=== PATIENT | female | born 1935 | race Caucasian/White ===

== ENCOUNTER 2017-06-04 08:29 | Inpatient (IN) ==
[2017-06-04] MEDS ORDERED: Ondansetron 4 MG/2 ML VIAL IVP ONE (08:54)
--- NOTE | 2017-06-04 08:56 | Emergency Department Note ---
Disposition Clinical Impression: Acute electrocardiogram changes, Ascites, Cirrhosis Abdominal pain Qualifiers: Abdominal location: periumbilical Qualified Code(s): R10.33 - Periumbilical pain Disposition: Still a Patient Referrals: Ace Dalton DO [Primary Care Provider] - Abdominal Pain HPI - General Chief Complaint: ED Abdominal Pain Stated Complaint: "my hernia hurts" Time Seen by Provider: 06/04/17 08:48 Source: patient, family Mode of arrival: private vehicle Limitations: no limitations Nursing Notes Reviewed: Yes Vital Signs Reviewed: Yes - History of Present Illness Pt Subjective Complaint: abdominal pain Onset (ago): week(s) Consistency: constant, Worsening Location: periumbilical Pain Severity: moderate Pain Scale: 8 Quality: sharp Radiation: other (mid abdomen) Improves with: nothing Worsens with: movement ("bending over to put on compression stockings") Context: history of similar episodes (recently diagnosed with a ventral hernia. Has appt to see Dr. Perez in June) Associated symptoms: Reports: nausea, diarrhea, anorexia. Denies: vomiting, fever, chills, constipation, dysuria, hematemesis, hematochezia, melena, hematuria, syncope, other Treatments prior to arrival: none - Related Data Home Medications Medication Instructions Recorded Confirmed ARIPiprazole [Abilify] 5 mg PO HS 10/21/15 04/29/17 Albuterol Sulfate [Albuterol 1 puff IH Q4HR 10/21/15 04/29/17 Inhaler] Atenolol 50 mg PO DAILY 10/21/15 04/29/17 Ferrous Sulfate [Iron] 325 mg PO TID 10/21/15 04/29/17 Fluticasone Propionate [Flovent 110 mcg IH BID 10/21/15 04/29/17 Hfa] Furosemide [Lasix] 40 mg PO BID 10/21/15 04/29/17 Levothyroxine [Synthroid] 125 mcg PO QAM 10/21/15 04/29/17 Loratadine [Claritin] 10 mg PO HS 10/21/15 04/29/17 Montelukast Sodium [Singulair] 5 mg PO HS 10/21/15 04/29/17 Simvastatin [Zocor] 20 mg PO QPM 10/21/15 04/29/17 Potassium Chloride [K-Tab ER] 10 meq PO DAILY 12/06/15 04/29/17 traZODone [TraZODone] 50 mg PO HS 12/06/15 04/29/17 Budesonide/Formoterol 160/4.5 1 puff IH BIDR 01/13/17 04/29/17 [Symbicort 160/4.5] Escitalopram [Lexapro] 20 mg PO DAILY 01/13/17 04/29/17 Oxygen 1 each NS CONT 01/13/17 04/29/17 Warfarin [Coumadin] 6.5 mg PO DAILY 01/13/17 04/29/17 Cholecalciferol (D-3) [Vitamin D] 1,000 unit PO DAILY 04/29/17 04/29/17 Previous Rx's Medication Instructions Recorded Aspirin 81 mg PO DAILY #90 tab.chew 10/23/15 Allergies Allergy/AdvReac Type Severity Reaction Status Date / Time morphine Allergy Anaphylaxis Verified 04/29/17 14:08 ranolazine [From Ranexa] Allergy Diarrhea Verified 04/29/17 14:08 etomidate [From Amidate] AdvReac Anaphylaxis Verified 04/29/17 14:08 iodine AdvReac Rash Verified 04/29/17 14:08 povidone-iodine AdvReac Rash Verified 04/29/17 14:08 [From Betadine] soap [From Betadine] AdvReac Rash Verified 04/29/17 14:08 All systems ED: reviewed and negative except as stated. Review of Systems: As Per HPI Constitutional: Denies: fever, chills, weakness Cardiovascular: Reports: dyspnea on exertion ("Chronic"), edema (worse today b/ c has not been able to put stockings on). Denies: chest pain, palpitations, orthopnea, syncope Respiratory: Denies: cough, dyspnea, wheezes, hemoptysis, stridor, sputum production Gastrointestinal: Reports: as per HPI, abdominal pain, nausea, diarrhea. Denies : vomiting, constipation, hematemesis, melena, hematochezia Genitourinary: Reports: frequency. Denies: urgency, dysuria, hematuria Musculoskeletal: Denies: back pain, neck pain, joint swelling, arthralgia Integumentary: Denies: rash Neurological: Denies: headache, weakness, numbness, paresthesias, confusion, vertigo Endocrine: Denies: fatigue Hematological/Lymphatic: Reports: easy bleeding (on Coumadin), easy bruising Abdominal Pain PMH - Past Medical History Medical history: Reports: arthritis, asthma, atrial fibrillation, CHF, COPD, coronary artery disease, GERD, hyperlipidemia, hypertension, thyroid disease Female Surgical History: Reports: cholecystectomy, hysterectomy, Tonsillectomy Psychiatric history: Reports: anxiety, depression - Social History Smoking status: Former smoker Alcohol use: Reports: none Drug use: Reports: none Physical Exam - General Limitations: no limitations General appearance: alert, in no apparent distress - Head Head exam: atraumatic, normocephalic, normal inspection - Eye Eye exam: Present: normal appearance, PERRL. Absent: scleral icterus, conjunctival injection, periorbital swelling - ENT ENT exam: mucous membranes dry - Neck Neck exam: Present: normal inspection, full ROM, trachea midline. Absent: tenderness, meningismus, lymphadenopathy - Chest Chest inspection: Present: normal inspection - Respiratory Respiratory exam: Absent: respiratory distress, wheezes, stridor, accessory muscle use, prolonged expiratory phase - Expanded Respiratory Exam Location: rales: Left, Right, Lower - Cardiovascular Cardiovascular exam: Present: regular rate, irregular rhythm, systolic murmur - Abdominal Exam Abdominal exam: Present: soft, tenderness, diminished bowel sounds. Absent: distention, guarding, rebound, rigidity, mass, pulsatile mass - Extremities Exam Extremities exam: Present: full ROM, normal capillary refill, pedal edema ( bilateral 1+; feet to knees). Absent: tenderness, joint swelling, calf tenderness - Neurological Exam Neurological exam: Present: alert, oriented X3, CN II-XII intact - Psychiatric Psychiatric exam: Present: normal affect, normal mood - Skin Skin exam: Present: warm, dry, intact, normal color Course Course Narrative: Patient presents from home for evaluation of abdominal pain. She points to the periumbilical area as the site of pain. It does not radiate. She states that she was recently diagnosed with a ventral hernia and has an appointment to see a surgeon in June. She was told to go to the ER if her pain increased, or if she experienced nausea/vomiting/diarrhea. She has had increased pain, nausea , and feels that the hernia is getting bigger. She denies chest pain, changes in breathing or worsening dyspnea on exertion. She does have a history of CHF and peripheral edema. She notes that her legs are more swollen than usual because she was unable to put on her compression stockings yesterday. This was because she has significant pain when she tries to bend over. Labs and antiemetics have been ordered. Patient declines pain medication at this time. Her EKG shows atrial fibrillation. She has new T-wave inversions compared to previous EKG from 2015. This was reviewed and discussed with the attending, Dr. Bright. CT of the abdomen and pelvis with contrast was ordered. Patient has a history of iodine allergy. CT recommends premedication protocol. This was ordered. I discussed this plan with the attending, however, the patient had already been given the medications. She has had no adverse reactions to the Benadryl or steroids. She was able to tolerate the contrast. Results of the CT are pending. Patient's BNP is elevated, slightly above her usual value. It is in the 700s. Chest x-ray was added. Results are pending. Case has been discussed with Dr. Bright, ER attending. He has had [id number] time with the patient and will be taking over care of her at this time. - Reevaluation(s) Reevaluation #1: Pain and nausea are better. Patient allergic to Iodine. CT ismael's pre- medication protocol. Time: 09:56 - Consultations Consultation #1: Dr. Malloy paged per recommendation of Dr. Bright. Case discussed with Dr. Malloy. She states that she will be happy to see the patient and to let the patient know that the hernia will not be able to be repaired until the ascites is controlled. Patient updated. Dr. Bright updated. Vital Signs Temperature 97.6 F 06/04/17 08:32 Pulse Rate 79 06/04/17 08:32 Respiratory Rate 18 06/04/17 08:32 Blood Pressure 119/80 06/04/17 08:32 O2 Sat by Pulse Oximetry 98 06/04/17 08:32 Temperature 97.6 F 06/04/17 08:32 Pulse Rate 66 06/04/17 12:08 Respiratory Rate 18 06/04/17 12:08 Blood Pressure 129/80 06/04/17 12:08 O2 Sat by Pulse Oximetry 94 06/04/17 12:08 Oxygen Delivery Oxygen Delivery Nasal Cannula Abdominal Pain - Medical Records Medical records reviewed: Yes I reviewed the patient's medical records. - Lab Data Result diagrams: 06/04/17 09:08 06/04/17 09:08 Lab Results 06/04/17 06/04/17 06/04/17 Range/Units 09:08 09:08 09:08 WBC 3.6 L (4.3-11.1) K/mcL RBC 3.57 L (3.82-4.97) M/mcL Hgb 10.0 L (11.5-15.4) g/dL Hct 33.4 L (35.3-44.9) % MCV 93.6 (83.0-100.0) fL MCH 28.0 (28.0-33.3) pg MCHC 29.9 L (31.6-35.5) g/dL RDW 14.0 (11.5-14.5) % Plt Count 93 L (140-400) K/mcL MPV 10.0 (9.4-12.4) fL Immature Gran % 0.6 (0-4) % Seg Neutrophils % 61.2 % Lymphocytes % 25.4 % Monocytes % 9.7 % Eosinophils % 2.5 % Basophils % 0.6 % Neutrophils # 2.2 (1.6-8.9) K/mcL Lymphocytes # 0.9 (0.6-4.6) K/mcL Monocytes # 0.4 (0.0-1.3) K/mcL Eosinophils # 0.1 (0.0-0.6) K/mcL Basophils # 0.0 (0.0-0.2) K/mcL Immature Plt Fraction 3.5 (1.1-6.1) % PT 28.5 H (9.4-12.1) Seconds INR 2.6 APTT 37.5 H (26.0-36.0) Seconds Sodium 139 (136-145) mEq/L Potassium 3.5 (3.5-4.5) mEq/L Chloride 96 L (98-109) mEq/L Carbon Dioxide 36 H (19-29) mEq/L BUN 21 H (7-20) mg/dL Creatinine 0.94 (0.57-1.11) mg/dL Est GFR ( Amer) > 60 (> 60) Est GFR (Non-Af Amer) 57 L (> 60) BUN/Creatinine Ratio 22 (6-26) Glucose 100 H (70-99) mg/dL Calculated Osmolality 291 (280-300) Lactic Acid (0.5-2.2) mmol/L Calcium 9.3 (8.6-10.8) mg/dL Total Bilirubin 1.1 (0.2-1.2) mg/dL Direct Bilirubin 0.6 H (0.0-0.5) mg/dL Indirect Bilirubin 0.5 (0.0-1.2) mg/dL AST 18 (5-34) Units/L ALT 9 (0-55) Units/L Alkaline Phosphatase 68 (38-126) Units/L Troponin I (0-0.03) ng/mL B-Natriuretic Peptide (0-100) pg/mL Serum Total Protein 7.7 (6.0-8.3) g/dL Albumin 3.6 (3.5-5.0) g/dL Globulin 4.1 H (2.4-3.5) g/dL Albumin/Globulin Ratio 0.9 L (1.1-2.2) Lipase 18 (8-78) Units/L Urine Color (Yellow) Urine Clarity (Clear) Urine pH (5.0-8.0) pH Units Ur Specific [place] (1.010-1.025) Urine Protein (Neg-Trace) mg/dL Urine Glucose (UA) (Normal) mg/dL Urine Ketones (Negative) mg/dL Urine Blood (Negative) Urine Nitrite (Negative) Urine Bilirubin (Negative) Urine Urobilinogen (Normal) mg/dL Ur Leukocyte Esterase (Negative) Urine Microscopic RBC (0-3) per hpf Urine Microscopic WBC (0-3) per hpf Ur Squamous Epith Cells (None-Few) per lpf Urine Bacteria (None-Few) per hpf Hyaline Casts (None-Few) per lpf Ur Culture Indicated? (NO) 06/04/17 06/04/17 06/04/17 Range/Units 09:08 09:08 09:08 WBC (4.3-11.1) K/mcL RBC (3.82-4.97) M/mcL Hgb (11.5-15.4) g/dL Hct (35.3-44.9) % MCV (83.0-100.0) fL MCH (28.0-33.3) pg MCHC (31.6-35.5) g/dL RDW (11.5-14.5) % Plt Count (140-400) K/mcL MPV (9.4-12.4) fL Immature Gran % (0-4) % Seg Neutrophils % % Lymphocytes % % Monocytes % % Eosinophils % % Basophils % % Neutrophils # (1.6-8.9) K/mcL Lymphocytes # (0.6-4.6) K/mcL Monocytes # (0.0-1.3) K/mcL Eosinophils # (0.0-0.6) K/mcL Basophils # (0.0-0.2) K/mcL Immature Plt Fraction (1.1-6.1) % PT (9.4-12.1) Seconds INR APTT (26.0-36.0) Seconds Sodium (136-145) mEq/L Potassium (3.5-4.5) mEq/L Chloride (98-109) mEq/L Carbon Dioxide (19-29) mEq/L BUN (7-20) mg/dL Creatinine (0.57-1.11) mg/dL Est GFR ( Amer) (> 60) Est GFR (Non-Af Amer) (> 60) BUN/Creatinine Ratio (6-26) Glucose (70-99) mg/dL Calculated Osmolality (280-300) Lactic Acid 0.6 (0.5-2.2) mmol/L Calcium (8.6-10.8) mg/dL Total Bilirubin (0.2-1.2) mg/dL Direct Bilirubin (0.0-0.5) mg/dL Indirect Bilirubin (0.0-1.2) mg/dL AST (5-34) Units/L ALT (0-55) Units/L Alkaline Phosphatase (38-126) Units/L Troponin I 0.01 (0-0.03) ng/mL B-Natriuretic Peptide 755 H (0-100) pg/mL Serum Total Protein (6.0-8.3) g/dL Albumin (3.5-5.0) g/dL Globulin (2.4-3.5) g/dL Albumin/Globulin Ratio (1.1-2.2) Lipase (8-78) Units/L Urine Color (Yellow) Urine Clarity (Clear) Urine pH (5.0-8.0) pH Units Ur Specific [place] (1.010-1.025) Urine Protein (Neg-Trace) mg/dL Urine Glucose (UA) (Normal) mg/dL Urine Ketones (Negative) mg/dL Urine Blood (Negative) Urine Nitrite (Negative) Urine Bilirubin (Negative) Urine Urobilinogen (Normal) mg/dL Ur Leukocyte Esterase (Negative) Urine Microscopic RBC (0-3) per hpf Urine Microscopic WBC (0-3) per hpf Ur Squamous Epith Cells (None-Few) per lpf Urine Bacteria (None-Few) per hpf Hyaline Casts (None-Few) per lpf Ur Culture Indicated? (NO) 06/04/17 Range/Units 09:49 WBC (4.3-11.1) K/mcL RBC (3.82-4.97) M/mcL Hgb (11.5-15.4) g/dL Hct (35.3-44.9) % MCV (83.0-100.0) fL MCH (28.0-33.3) pg MCHC (31.6-35.5) g/dL RDW (11.5-14.5) % Plt Count (140-400) K/mcL MPV (9.4-12.4) fL Immature Gran % (0-4) % Seg Neutrophils % % Lymphocytes % % Monocytes % % Eosinophils % % Basophils % % Neutrophils # (1.6-8.9) K/mcL Lymphocytes # (0.6-4.6) K/mcL Monocytes # (0.0-1.3) K/mcL Eosinophils # (0.0-0.6) K/mcL Basophils # (0.0-0.2) K/mcL Immature Plt Fraction (1.1-6.1) % PT (9.4-12.1) Seconds INR APTT (26.0-36.0) Seconds Sodium (136-145) mEq/L Potassium (3.5-4.5) mEq/L Chloride (98-109) mEq/L Carbon Dioxide (19-29) mEq/L BUN (7-20) mg/dL Creatinine (0.57-1.11) mg/dL Est GFR ( Amer) (> 60) Est GFR (Non-Af Amer) (> 60) BUN/Creatinine Ratio (6-26) Glucose (70-99) mg/dL Calculated Osmolality (280-300) Lactic Acid (0.5-2.2) mmol/L Calcium (8.6-10.8) mg/dL Total Bilirubin (0.2-1.2) mg/dL Direct Bilirubin (0.0-0.5) mg/dL Indirect Bilirubin (0.0-1.2) mg/dL AST (5-34) Units/L ALT (0-55) Units/L Alkaline Phosphatase (38-126) Units/L Troponin I (0-0.03) ng/mL B-Natriuretic Peptide (0-100) pg/mL Serum Total Protein (6.0-8.3) g/dL Albumin (3.5-5.0) g/dL Globulin (2.4-3.5) g/dL Albumin/Globulin Ratio (1.1-2.2) Lipase (8-78) Units/L Urine Color Yellow (Yellow) Urine Clarity Clear (Clear) Urine pH 6.5 (5.0-8.0) pH Units Ur Specific [place] 1.015 (1.010-1.025) Urine Protein Negative (Neg-Trace) mg/dL Urine Glucose (UA) Normal (Normal) mg/dL Urine Ketones Negative (Negative) mg/dL Urine Blood Moderate H (Negative) Urine Nitrite Negative (Negative) Urine Bilirubin Negative (Negative) Urine Urobilinogen Normal (Normal) mg/dL Ur Leukocyte Esterase Moderate H (Negative) Urine Microscopic RBC 5-15 H (0-3) per hpf Urine Microscopic WBC 5-15 H (0-3) per hpf Ur Squamous Epith Cells Many H (None-Few) per lpf Urine Bacteria None Seen (None-Few) per hpf Hyaline Casts None Seen (None-Few) per lpf Ur Culture Indicated? YES A (NO) - EKG Data EKG attestation: Yes I reviewed and interpreted this EKG. Rhythm: A.Fib Attestation Statement - Attestation Attestation: For this encounter, I have reviewed the SUPPLIER RELATIONSHIP DIRECTOR or PA documentation, treatment plan, and medical decision making; and I have had face to face time with this patient. 82yo F here for abd pain, distention. pt with known abd hernia. Patient feels like her abdomen is more distended. She also states that she has been nauseated more lately. Workup in the ER revealed evidence of the [place] hernia with some ascites fluid present. It appears that she has got portal hypertension with cirrhotic findings and ascites fluid. Patient did not know that she had this. This is on new diagnosis to her. We spoke with general surgery in consultation for the abdominal hernia. Patient will need to be worked up from the cirrhosis ascites point review before she undergoes any surgical intervention at this time.
[2017-06-04] MEDS: 0.9 % Sodium Chloride 1,000 ML IVC ONE ×2 (09:15→09:18)
[2017-06-04] MEDS: 0.9 % Sodium Chloride 1,000 ML IVC SCH (09:18)
[2017-06-04 09:28] LABS: Basophils % 0.6 %; Eosinophils # 0.1 K/mcL (0.0-0.6); Eosinophils % 2.5 %; Hematocrit 33.4 % (35.3-44.9); Immature Granulocytes % 0.6 % (0-4); Immature Platelets 3.5 % (1.1-6.1); Lymphocytes # 0.9 K/mcL (0.6-4.6); Lymphocytes % 25.4 %; Mean Corpuscular HGB Conc 29.9 g/dL (31.6-35.5); Mean Corpuscular Volume 93.6 fL (83.0-100.0); Monocytes # 0.4 K/mcL (0.0-1.3); Monocytes % 9.7 %; Neutrophils # 2.2 K/mcL (1.6-8.9); Red Blood Count 3.57 M/mcL (3.82-4.97); Segmented Neutrophils % 61.2 %
[2017-06-04 09:29] LABS: Platelet Count 93 K/mcL (140-400)
[2017-06-04 09:30] LABS: INR 2.6; Prothrombin Time 28.5 Seconds (9.4-12.1)
[2017-06-04 09:33] LABS: Activated Partial Thrombo Time 37.5 Seconds (26.0-36.0)
[2017-06-04 09:38] LABS: Alanine Aminotransferase 9 Units/L (0-55); Albumin 3.6 g/dL (3.5-5.0); Albumin/Globulin Ratio 0.9 (1.1-2.2); Alkaline Phosphatase 68 Units/L (38-126); Aspartate Amino Transferase 18 Units/L (5-34); BUN/Creatinine Ratio 22 (6-26); Bilirubin,Direct 0.6 mg/dL (0.0-0.5); Bilirubin,Indirect 0.5 mg/dL (0.0-1.2); Bilirubin,Total 1.1 mg/dL (0.2-1.2); Blood Urea Nitrogen 21 mg/dL (7-20); Calcium 9.3 mg/dL (8.6-10.8); Carbon Dioxide 36 mEq/L (19-29); Chloride 96 mEq/L (98-109); Globulin 4.1 g/dL (2.4-3.5); Glucose 100 mg/dL (70-99); Lipase 18 Units/L (8-78); Osmolality,Calculated 291 (280-300); Potassium 3.5 mEq/L (3.5-4.5); Sodium 139 mEq/L (136-145); Total Protein 7.7 g/dL (6.0-8.3); eGFR For African Americans > 60 (> 60); eGFR For Non-African Americans 57 (> 60)
[2017-06-04 09:59] LABS: Bilirubin,Urine Negative (Negative); Blood,Urine Moderate (Negative); Clarity,Urine Clear (Clear); Color,Urine Yellow (Yellow); Glucose,Urine (UA) Normal (Normal); Ketones,Urine Negative (Negative); Leukocyte Esterase,Urine Moderate (Negative); Nitrite,Urine Negative (Negative); PH,Urine 6.5 pH Units (5.0-8.0); Protein,Urine Negative (Neg-Trace); Specific Gravity,Urine 1.015 (1.010-1.025); Urobilinogen,Urine Normal (Normal)
[2017-06-04] MEDS ORDERED: MethylPREDNISolone 40 MG/ML VIAL IVP ONE (10:00)
[2017-06-04 10:01] LABS: Bacteria,Urine None Seen per hpf (None-Few); Hyaline Casts,Urine None Seen per lpf (None-Few); Squamous Epithelial Cell,Urine Many per lpf (None-Few)
[2017-06-04] MEDS ORDERED: Naloxone 0.4 MG/ML INJ IVP PRN (15:17)
[2017-06-04] MEDS ORDERED: *HR* HYDROmorphone (PF) 1 MG/ML SYRINGE IVP PRN (15:17)
[2017-06-04] MEDS ORDERED: *HR* OxyCODONE Immed Rel 5 MG TABLET PO PRN (15:17)
--- NOTE | 2017-06-04 15:37 | Internal Med History&Physical ---
<FalguniOscar martins - Last Filed: 06/04/17 16:03> Date of Encounter: 06/04/17 Time of Encounter: 15:34 Assessment and Plan (1) Abdominal pain Current visit: Yes Status: Acute - Known history of ventral hernia - Surgery consulted in the emergency department, determined not to take to surgery until ascites fluid is gone - We will treat symptomatically for time being - Patient is having bowel movements, no reported blood - We will continue to monitor for any signs of incarceration Qualifiers: Abdominal location: periumbilical Qualified Code(s): R10.33 - Periumbilical pain (2) Cirrhosis Current visit: Yes Status: Acute - Abdominal CT emergency department shows a cirrhotic liver with portal hypertension - Patient denies any known history of liver disease - Denies alcohol use and presence or recent past, no known family history of liver disease - Hepatic panel shows liver function tests within normal levels - Small amount of ascites on CT scan, we will perform paracentesis at this time Qualifiers: Hepatic cirrhosis type: unspecified hepatic cirrhosis Ascites presence: with ascites Qualified Code(s): K74.60 - Unspecified cirrhosis of liver (3) Ascites Current visit: Yes Status: Acute - Small amount of ascitic fluid seen on abdominal CT emergency department - Likely causing increased pressure on the ventral hernia, which is the cause of her pain - Unable to perform paracentesis at this time due to small amount of fluid - Lasix, spironolactone if necessary. - We will continue to monitor Qualifiers: Ascites type: other type Qualified Code(s): R18.8 - Other ascites (4) Afib Current visit: No Status: Chronic - Rate controlled with atenolol at home, heart rate of 79 upon presentation to the emergency department - Continue beta shaka, we will hold her home dose of Coumadin until surgery is able to see her Qualifiers: Atrial fibrillation type: chronic Qualified Code(s): I48.2 - Chronic atrial fibrillation (5) Hypertension Current visit: No Status: Chronic - We will controlled at 119/80 - Continue home meds Qualifiers: Hypertension type: essential hypertension Qualified Code(s): I10 - Essential (primary) hypertension Internal Medicine - H&P: HPI Admitted From: Emergency Dept Plans for Post Hospital Care: Home History of present illness: Ms. Muñoz is a 82 year old female who presents to emergency department with the complaint of abdominal pain for a couple days. She states that she has been told she has a ventral hernia but it has increased in size over the last couple days. She states that the pain is located around her umbilicus as well as the right side but does not radiate. The pain is sharp in nature and intermittent, exacerbated with movement and palpation. At rest she describes no pain, however she describes as 8/10 upon palpation. She states she has appointments with a surgeon in June for surgical intervention for hernia. She does admit to nausea with meals, decreased appetite, increased abdominal fullness, bilateral lower extremity swelling however she states that she has not been able to put her on her compression stockings secondary to abdominal fullness and pain. She denies any symptoms of chest pain, shortness of breath outside her baseline, vomiting, melena, hematochezia, fevers, chills. She does complain of a change in bowel habits where she has a normal bowel movement 2-3 times per week, but also has a new onset of diarrhea following one of the bowel movements once per week. She states her stool is always dark secondary to iron supplementation but denies any gross blood. She is without gallbladder, intact appendix. No history of liver disease and self or family. Denies alcohol use in last 50 years. Past Med Surg Social Fam HX - Past Medical History Medical history: arthritis, asthma, atrial fibrillation, CHF, COPD, coronary artery disease, GERD, hyperlipidemia, hypertension, thyroid disease Psychiatric history: anxiety, depression - Past Surgical History Surgical History: angioplasty/stent, cholecystectomy, herniorrhaphy, hysterectomy - Social History Smoking Status: Former smoker Smokeless Tobacco Status: No Alcohol use: none Drug use: none - Family History Mother Living Status: Hx Family Cardiac Disorders: Yes Hx Family Respiratory Disorders: No Hx Family Cancer: Yes Hx Family GI Disorders: No Hx Family Endocrine Disorder: Yes Hx Family Neuromuscular Disorders: No Hx Family Neurologic Disorders: Yes Hx Family HEENT Disorders: No Hx Family Autoimmune Disorders: No Internal Medicine - H&P: Meds ARIPiprazole [Abilify] 5 mg PO HS 10/21/15 [History] Albuterol Sulfate [Albuterol Inhaler] 1 puff IH Q4HR 10/21/15 [History] Atenolol 50 mg PO DAILY 10/21/15 [History] Ferrous Sulfate [Iron] 650 mg PO HS 10/21/15 [History] Fluticasone Propionate [Flovent Hfa] 110 mcg IH BID 10/21/15 [History] Furosemide [Lasix] 40 mg PO BID 10/21/15 [History] Loratadine [Claritin] 10 mg PO HS 10/21/15 [History] Montelukast Sodium [Singulair] 5 mg PO HS 10/21/15 [History] Simvastatin [Zocor] 20 mg PO QPM 10/21/15 [History] Aspirin 81 mg PO DAILY #90 tab.chew 10/23/15 [Rx] Potassium Chloride [K-Tab ER] 10 meq PO DAILY 12/06/15 [History] traZODone [TraZODone] 50 mg PO HS 12/06/15 [History] Budesonide/Formoterol 160/4.5 [Symbicort 160/4.5] 2 puff IH BIDR 01/13/17 [ History] Escitalopram [Lexapro] 20 mg PO DAILY 01/13/17 [History] Oxygen 3 l NS CONT 01/13/17 [History] Warfarin [Coumadin] 7 mg PO DAILY 01/13/17 [History] Cholecalciferol (D-3) [Vitamin D] 1,000 unit PO DAILY 04/29/17 [History] Albuterol Neb [Proventil Neb] 2.5 mg IH Q4HR 06/04/17 [History] Ferrous Sulfate [Iron] 325 mg PO QAM 06/04/17 [History] Levothyroxine [Synthroid] 112 mcg PO 0630 06/04/17 [History] Tiotropium [Spiriva] 1 cap IH DAILY 06/04/17 [History] 3 Allergy/AdvReac Type Severity Reaction Status Date / Time morphine Allergy Anaphylaxis Verified 04/29/17 14:08 ranolazine [From Ranexa] Allergy Diarrhea Verified 04/29/17 14:08 etomidate [From Amidate] AdvReac Anaphylaxis Verified 04/29/17 14:08 iodine AdvReac Rash Verified 04/29/17 14:08 povidone-iodine AdvReac Rash Verified 04/29/17 14:08 [From Betadine] soap [From Betadine] AdvReac Rash Verified 04/29/17 14:08 All Systems PM: A 10-system review of systems was performed and is negative for pertinent findings except as documented above in the HPI. - Constitutional Constitutional: as per HPI - EENT Eyes: as per HPI - Cardiovascular Cardiovascular ROS IM: as per HPI, dyspnea on exertion, no chest pain, no diaphoresis, no lightheadedness, no orthopnea - Respiratory Respiratory: as per HPI, dyspnea, dyspnea on exertion, no cough - Gastrointestinal Gastrointestinal: as per HPI, abdominal pain, change in stool character, diarrhea, no change in bowel habits, no constipation, no dyspepsia, no dysphagia , no early satiety, no hematemesis, no hematochezia, no melena, no vomiting - Neurological Neurological ROS: as per HPI - Constitutional Vitals: Temp Pulse Resp BP Pulse Ox 97.7 F 67 18 146/81 94 06/04/17 15:23 06/04/17 15:23 06/04/17 15:23 06/04/17 15:23 06/04/17 15:23 Exam: Gen.: Vitals noted. No acute distress. AAOx3 HEENT: PERRL/EOMI, oropharynx clear, Normocephalic, atraumatic. Adentition Neck: Supple. No adenopathy. Cardiac: Irregularly irregular rhythm with systolic murmur, +S1/S2 Pulmonary: CTA bilaterally, no wheezes, rales or rhonchi, equal chest expansion Abdomen: Bowel sounds present, tender to palpation in periumbilical and right upper quadrant, no rebound, mild fluid wave. No masses palpated. Potential hernia present Back: Nontender throughout. MSK: ROM intact, no joint swelling noted Extremities: 2+ bilateral lower extremity edema, nontender calf, no cyanosis or clubbing Neuro: A&Ox3, moves all extremities, no focal deficits Psych: Appropriate mood and behavior Internal Med - H&P Results - Labs CBC & Chem 7: 06/04/17 09:08 06/04/17 09:08 <Bert Roca P - Last Filed: 06/04/17 18:00> Date of Encounter: 06/04/17 Internal Medicine - H&P: HPI History of present illness: Ms. Muñoz is a 82 year old female All Systems PM: A 10-system review of systems was performed and is negative for pertinent findings except as documented above in the HPI. - Constitutional Vitals: Temp Pulse Resp BP Pulse Ox 97.7 F 67 16 146/81 95 06/04/17 15:23 06/04/17 15:23 06/04/17 15:57 06/04/17 15:23 06/04/17 15:57 Internal Med - H&P Results - Labs CBC & Chem 7: 06/04/17 09:08 06/04/17 09:08 - Attending Attestation I examined this patient and my medical decision-making was reviewed with the Resident Physician. I agree with the documented findings, disposition and treatment plan as described except to the extent set forth below.
--- NOTE | 2017-06-04 17:18 | General Surgery Consult Note ---
Date of Encounter: 06/04/17 Time of Encounter: 17:15 Assessment and Plan (1) Hypothyroid Current Visit: Yes Status: Chronic continue synthroid Qualifiers: Hypothyroidism type: unspecified Qualified Code(s): E03.9 - Hypothyroidism , unspecified (2) Ventral hernia without obstruction or gangrene Current Visit: Yes Status: Chronic patient hernia was reduced, she is having pain from site concern regarding severe pulmonary HTN and Aortic stenosis will consult cardiology for input regarding feasibility of future surgical repair given comorbidities (3) Ascites Current Visit: Yes Status: Chronic due to cirhrosis of liver Qualifiers: Ascites type: other type Qualified Code(s): R18.8 - Other ascites (4) Cirrhosis Current Visit: Yes Status: Chronic inr 2.6 but elevated due to coumadin anticoagulation albumin 3.6 T bilirubin 1.1 mild abdominal ascites and no encephalopathy patient is Child-mckay A consult GI for new dx cirrhosis with ascites Qualifiers: Hepatic cirrhosis type: unspecified hepatic cirrhosis Ascites presence: with ascites Qualified Code(s): K74.60 - Unspecified cirrhosis of liver (5) Anemia Current Visit: No Status: Chronic Qualifiers: Anemia type: other cause Other causes of anemia: other cause, not classified Qualified Code(s): D64.89 - Other specified anemias (6) Afib Current Visit: No Status: Chronic currently anticoagulated on coumadin Qualifiers: Atrial fibrillation type: chronic Qualified Code(s): I48.2 - Chronic atrial fibrillation (7) CHF (congestive heart failure) Current Visit: No Status: Chronic patient BNP currently 755 with SOB and dizziness Qualifiers: Congestive heart failure type: diastolic Congestive heart failure chronicity: unspecified congestive heart failure chronicity Qualified Code(s) : I50.30 - Unspecified diastolic (congestive) heart failure (8) Hypertension Current Visit: No Status: Chronic currently normotensive, on home medication, monitor Qualifiers: Hypertension type: essential hypertension Qualified Code(s): I10 - Essential (primary) hypertension History of Present Illness Consult date: 06/04/17 Reason for consult: hernia History of present illness: Patient is an 82 yo female with history of CHF, Afib on coumadin. She presents to ED with SOB and dizziness with ambulation. She concurrently has a ventral hernia that is causing her pain and is the reason we were consulted. She has had the hernia present for approximately 2 years. She feels it is enlarging with time. She has never tried to reduce the hernia. She had a CT scan abd and pelvis today that shows cirrhosis of the liver with portal HTN and splenomegaly. SHe has mild pelvic ascites. The ventral hernia contains only fat. She is unaware of a diagnosis of cirrhosis. She had an MRI in april 2015 which showed nodular contour to the liver. CT scan abd/pelvis 01/2016 show cirrhosis, splenomegaly. Echo on 10/2015 shows EF 65% and patent PFO. Echo on April 2016 showed EF 65-75% , PFO by color Doppler, Mild aortic stenosis, Mild mitral regurgitation, Mild tricuspid regurgitation, Severe pulmonary hypertension, Estimated RVSP = 62 mmHg. She see's hematology for leukopenia and anemia. Past Med Surg Social Fam HX - Past Medical History Source: patient Medical history: arthritis, asthma, atrial fibrillation, cirrhosis, CHF, COPD, coronary artery disease, GERD, hyperlipidemia, hypertension, thyroid disease, other (pulmonary HTN, Aortic stenosis, Mitral regurgitation) Psychiatric history: anxiety, depression - Past Surgical History Surgical History: angioplasty/stent, cholecystectomy (open), herniorrhaphy, hysterectomy, vascular surgery (vein stripping) - Social History Smoking Status: Former smoker Smokeless Tobacco Status: No Alcohol use: none Drug use: none - Family History Mother Living Status: Hx Family Cardiac Disorders: Yes Hx Family Respiratory Disorders: No Hx Family Cancer: Yes Hx Family GI Disorders: No Hx Family Endocrine Disorder: Yes Hx Family Neuromuscular Disorders: No Hx Family Neurologic Disorders: Yes Hx Family HEENT Disorders: No Hx Family Autoimmune Disorders: No Medications and Allergies ARIPiprazole [Abilify] 5 mg PO HS 10/21/15 [History] Albuterol Sulfate [Albuterol Inhaler] 1 puff IH Q4HR 10/21/15 [History] Atenolol 50 mg PO DAILY 10/21/15 [History] Ferrous Sulfate [Iron] 650 mg PO HS 10/21/15 [History] Fluticasone Propionate [Flovent Hfa] 110 mcg IH BID 10/21/15 [History] Furosemide [Lasix] 40 mg PO BID 10/21/15 [History] Loratadine [Claritin] 10 mg PO HS 10/21/15 [History] Montelukast Sodium [Singulair] 5 mg PO HS 10/21/15 [History] Simvastatin [Zocor] 20 mg PO QPM 10/21/15 [History] Aspirin 81 mg PO DAILY #90 tab.chew 10/23/15 [Rx] Potassium Chloride [K-Tab ER] 10 meq PO DAILY 12/06/15 [History] traZODone [TraZODone] 50 mg PO HS 12/06/15 [History] Budesonide/Formoterol 160/4.5 [Symbicort 160/4.5] 2 puff IH BIDR 01/13/17 [ History] Escitalopram [Lexapro] 20 mg PO DAILY 01/13/17 [History] Oxygen 3 l NS CONT 01/13/17 [History] Warfarin [Coumadin] 7 mg PO DAILY 01/13/17 [History] Cholecalciferol (D-3) [Vitamin D] 1,000 unit PO DAILY 04/29/17 [History] Albuterol Neb [Proventil Neb] 2.5 mg IH Q4HR 06/04/17 [History] Ferrous Sulfate [Iron] 325 mg PO QAM 06/04/17 [History] Levothyroxine [Synthroid] 112 mcg PO 0630 06/04/17 [History] Tiotropium [Spiriva] 1 cap IH DAILY 06/04/17 [History] 3 Allergy/AdvReac Type Severity Reaction Status Date / Time morphine Allergy Anaphylaxis Verified 04/29/17 14:08 ranolazine [From Ranexa] Allergy Diarrhea Verified 04/29/17 14:08 etomidate [From Amidate] AdvReac Anaphylaxis Verified 04/29/17 14:08 iodine AdvReac Rash Verified 04/29/17 14:08 povidone-iodine AdvReac Rash Verified 04/29/17 14:08 [From Betadine] soap [From Betadine] AdvReac Rash Verified 04/29/17 14:08 Review of Systems All systems PM: reviewed and no additional remarkable complaints except as stated All systems PM: A 10-system review of systems was performed and is negative for pertinent findings except as documented above in the HPI. General Surgery Exam Initial Vital Signs Temp Pulse Resp BP Pulse Ox 97.6 F 79 18 119/80 98 06/04/17 08:32 06/04/17 08:32 06/04/17 08:32 06/04/17 08:32 06/04/17 08:32 - General physical appearance well developed, well nourished, no distress, obese - Eyes PERRL, normal ocular movement - ENT normal mucosa, normocephalic - Respiratory normal expansion, clear to auscultation - Cardiovascular Cardiovascular exam: Present: NR, murmurs - Abdomen Abdomen general surgery: Present: bowel sounds present, soft, tender (at supraumbilical ventral hernia - reduced) - Integumentary Integumentary general surgery: Present: warm and dry, no abnormal pigmentation - Neurologic Present: CN 2-12 grossly intact - Musculoskeletal Present: normal posture - Psychiatric Psychiatric general surgery: Present: A&Ox3, speech is normal Exam Initial Vital Signs Temp Pulse Resp BP Pulse Ox 97.6 F 79 18 119/80 98 06/04/17 08:32 06/04/17 08:32 06/04/17 08:32 06/04/17 08:32 06/04/17 08:32 Results - Labs 06/04/17 09:08 06/04/17 09:08 Abnormal lab results WBC 3.6 K/mcL (4.3-11.1) L 06/04/17 09:08 RBC 3.57 M/mcL (3.82-4.97) L 06/04/17 09:08 Hgb 10.0 g/dL (11.5-15.4) L 06/04/17 09:08 Hct 33.4 % (35.3-44.9) L 06/04/17 09:08 MCHC 29.9 g/dL (31.6-35.5) L 06/04/17 09:08 Plt Count 93 K/mcL (140-400) L 06/04/17 09:08 PT 28.5 Seconds (9.4-12.1) H 06/04/17 09:08 APTT 37.5 Seconds (26.0-36.0) H 06/04/17 09:08 Chloride 96 mEq/L (98-109) L 06/04/17 09:08 Carbon Dioxide 36 mEq/L (19-29) H 06/04/17 09:08 BUN 21 mg/dL (7-20) H 06/04/17 09:08 Est GFR (Non-Af Amer) 57 (> 60) L 06/04/17 09:08 Glucose 100 mg/dL (70-99) H 06/04/17 09:08 POC Glucose 214 (58-89) H 06/04/17 16:36 Direct Bilirubin 0.6 mg/dL (0.0-0.5) H 06/04/17 09:08 B-Natriuretic Peptide 755 pg/mL (0-100) H 06/04/17 09:08 Globulin 4.1 g/dL (2.4-3.5) H 06/04/17 09:08 Albumin/Globulin Ratio 0.9 (1.1-2.2) L 06/04/17 09:08 Urine Blood Moderate (Negative) H 06/04/17 09:49 Ur Leukocyte Esterase Moderate (Negative) H 06/04/17 09:49 Urine Microscopic RBC 5-15 per hpf (0-3) H 06/04/17 09:49 Urine Microscopic WBC 5-15 per hpf (0-3) H 06/04/17 09:49 Ur Squamous Epith Cells Many per lpf (None-Few) H 06/04/17 09:49 Ur Culture Indicated? YES (NO) A 06/04/17 09:49 All other labs normal. - Imaging CT scan - abdomen: report reviewed, image reviewed CT scan - pelvis: report reviewed, image reviewed Consult Discharge Plan - Plan Referrals: Ace Dalton DO [Primary Care Provider] -
[2017-06-04] MEDS: Spironolactone 25 MG TABLET PO SCH (18:30)
[2017-06-04] MEDS: Budesonide/Formoterol 160/4.5 MDI IH SCH (19:59)
[2017-06-04] MEDS: ARIPiprazole 2 MG TABLET PO SCH (20:36)
[2017-06-04] MEDS: Furosemide 40 MG TABLET PO SCH (20:36)
[2017-06-04] MEDS: traZODone 50 MG TABLET PO SCH (20:36)
[2017-06-05] MEDS: 0.9 % Sodium Chloride 1,000 ML IVC SCH (03:58)
[2017-06-05] MEDS: Aspirin 81 MG TAB.CHEW PO SCH (07:49)
[2017-06-05] MEDS: Spironolactone 25 MG TABLET PO SCH (07:49)
[2017-06-05] MEDS: Furosemide 40 MG TABLET PO SCH (07:49)
[2017-06-05 08:44] LABS: Basophils % 0.2 %; Eosinophils % 0.7 %; Hematocrit 33.3 % (35.3-44.9); Immature Granulocytes % 0.2 % (0-4); Lymphocytes # 0.9 K/mcL (0.6-4.6); Lymphocytes % 22.5 %; Mean Corpuscular Hemoglobin 28.6 pg (28.0-33.3); Mean Corpuscular Volume 95.1 fL (83.0-100.0); Mean Platelet Volume 9.6 fL (9.4-12.4); Monocytes # 0.3 K/mcL (0.0-1.3); Monocytes % 8.3 %; Neutrophils # 2.8 K/mcL (1.6-8.9); Red Cell Distribution Width 14.1 % (11.5-14.5); Segmented Neutrophils % 68.1 %
[2017-06-05 08:45] LABS: Platelet Count 77 K/mcL (140-400)
[2017-06-05 08:49] LABS: INR 2.8; Prothrombin Time 30.3 Seconds (9.4-12.1)
[2017-06-05] MEDS: Budesonide/Formoterol 160/4.5 MDI IH SCH ×2 (08:55→20:01)
[2017-06-05 09:10] LABS: BUN/Creatinine Ratio 20 (6-26); Blood Urea Nitrogen 20 mg/dL (7-20); Calcium 8.9 mg/dL (8.6-10.8); Carbon Dioxide 36 mEq/L (19-29); Chloride 99 mEq/L (98-109); Glucose 141 mg/dL (70-99); Magnesium 2.2 mg/dL (1.6-2.6); Osmolality,Calculated 297 (280-300); Phosphorous 3.2 mg/dL (2.3-4.7); Potassium 3.5 mEq/L (3.5-4.5); Sodium 141 mEq/L (136-145); eGFR For African Americans > 60 (> 60); eGFR For Non-African Americans 52 (> 60)
--- NOTE | 2017-06-05 09:25 | Anesthesia Evaluation PreOp ---
Date of Encounter: 06/05/17 Time of Encounter: 09:22 - Past History Planned Operation: EGD Cardiac History: CHF, HTN, Hyperlipidemia, Arrhythmia (H/O A-Fib), Cardiac Stent (stents x 3) Pulmonary History: Asthma, COPD (home O2 at 3L [place]) SAW MAN History: Denies Any Significant HX Other Medical History: Diabetes Type II (diet controlled), Thyroid, GERD, Other (anxiety/depression) Anesthesia History: No Prior Anesthetic Complications, Past Anesthesia Alcohol Use: none Drug use: none Medications and Allergies ARIPiprazole [Abilify] 5 mg PO HS 10/21/15 [History] Albuterol Sulfate [Albuterol Inhaler] 1 puff IH Q4HR 10/21/15 [History] Atenolol 50 mg PO DAILY 10/21/15 [History] Ferrous Sulfate [Iron] 650 mg PO HS 10/21/15 [History] Fluticasone Propionate [Flovent Hfa] 110 mcg IH BID 10/21/15 [History] Furosemide [Lasix] 40 mg PO BID 10/21/15 [History] Loratadine [Claritin] 10 mg PO HS 10/21/15 [History] Montelukast Sodium [Singulair] 5 mg PO HS 10/21/15 [History] Simvastatin [Zocor] 20 mg PO QPM 10/21/15 [History] Aspirin 81 mg PO DAILY #90 tab.chew 10/23/15 [Rx] Potassium Chloride [K-Tab ER] 10 meq PO DAILY 12/06/15 [History] traZODone [TraZODone] 50 mg PO HS 12/06/15 [History] Budesonide/Formoterol 160/4.5 [Symbicort 160/4.5] 2 puff IH BIDR 01/13/17 [ History] Escitalopram [Lexapro] 20 mg PO DAILY 01/13/17 [History] Oxygen 3 l NS CONT 01/13/17 [History] Warfarin [Coumadin] 7 mg PO DAILY 01/13/17 [History] Cholecalciferol (D-3) [Vitamin D] 1,000 unit PO DAILY 04/29/17 [History] Albuterol Neb [Proventil Neb] 2.5 mg IH Q4HR 06/04/17 [History] Ferrous Sulfate [Iron] 325 mg PO QAM 06/04/17 [History] Levothyroxine [Synthroid] 112 mcg PO 0630 06/04/17 [History] Tiotropium [Spiriva] 1 cap IH DAILY 06/04/17 [History] 3 Allergy/AdvReac Type Severity Reaction Status Date / Time morphine Allergy Anaphylaxis Verified 04/29/17 14:08 ranolazine [From Ranexa] Allergy Diarrhea Verified 04/29/17 14:08 etomidate [From Amidate] AdvReac Anaphylaxis Verified 04/29/17 14:08 iodine AdvReac Rash Verified 04/29/17 14:08 povidone-iodine AdvReac Rash Verified 04/29/17 14:08 [From Betadine] soap [From Betadine] AdvReac Rash Verified 04/29/17 14:08 - Meds/Allergy Pre-op Review Medications Reviewed: Yes Allergies Reviewed: Yes Beta Blockers on Current Med List: Yes If Beta Blockers taken, Date/Time (Last Dose taken): 06/05/2017 at 0749 Anesthesia Results - Labs 06/05/17 08:13 06/05/17 08:13 - Imaging EKG: report reviewed (04/02/2016 A-Fib with aberrant conduction or PVC's, possible RVH, moderate T wave abnormality) Additional studies: 05/14/2016 Echo Impressions: Normal LV chamber size, wall thickness, and systolic function. LVEF 65-70%. Indeterminate diastolic function due to atrial fibrillation. Mildly dilated right ventricle with normal systolic function. Moderate-severely dilated left atrium. Moderate-severely dilated right atrium. There is evidence of a PFO by color Doppler. Mild aortic stenosis. Mild mitral regurgitation. Mild tricuspid regurgitation. Severe pulmonary hypertension. Estimated RVSP = 62 mmHg. 12/09/2013 LEFT HEART CATH Indications: Chest Pain, Atherosclerotic Coronary Artery Disease Impressions: Moderate atherosclerotic coronary artery disease. Previously stented Cx/OM1 patent. The left ventricle is normal and has normal contractility EF 60% Anesthesia Exam Vital Signs/O2 Sat/Glucose, Most Recent Temp Pulse Resp BP Pulse Ox 97.4 F L 61 16 109/72 95 06/05/17 06:41 06/05/17 06:41 06/05/17 08:58 06/05/17 06:41 06/05/17 08:58 Blood Glucose* 214 Height: 5'4''/1.63 m Weight: 204 lbs/92.6 kg NPO (# of Hours): 8 Pain Scale: 0 Pain Scale Used: Numeric (1 - 10) - HEENT Pupil (Motor): EOMI Mallampati: II Teeth: Edentulous Oral Opening: Greater than 3 - SAW MAN LOC: Oriented SAW MAN Motor: Normal RUE, Normal LUE, Normal Face, Deficit RLE, Deficit LLE SAW MAN Sensory: Normal: RUE, LUE, LLE, Face, Deficit: RLE - Cardiac Rhythm: Irregular Murmur: Systolic - Pulmonary Breath Sounds: bilateral Clear (shallow) Respiratory Effort: Symmetrical Anesthesia Assess/Plan ASA Score: 4 Modified Giovana Scale for Level of Consciousness: Cooperative, oriented, and tranquil Anesthetic Plan: MAC Monitoring Plan: Standard Monitors
[2017-06-05] MEDS ORDERED: Tetracaine/Benzocaine/Butamben 200MG/SPRAY (100SPY/BOT) MM ONE (10:10)
[2017-06-05] MEDS: Tiotropium 18 MCG inhalation IH SCH (11:24)
--- NOTE | 2017-06-05 12:09 | Cardiology Consult Note ---
Date of Encounter: 06/05/17 Time of Encounter: 11:56 Assessment and Plan (1) Pre-operative cardiovascular examination Current Visit: Yes Status: Acute Patient has history of previous PCI to her LCX artery, DCHF, atrial fibrillation , and moderate aortic stenosis. C/o chronic dyspnea and chest pain with exertion that is mildly increased from baseline. Last cardiac work-up includes: TE 06/2016 at [facility] EF 60-65%. Moderate mitral annular calcification. Mild MR. Moderate aortic stenosis. Moderate pulmonary hypertension. [facility] 2013- moderate non-obstructive CAD. Patent LCX stents. Troponin this admisiion is negative. BNP 700's. EKG shows rate controlled atrial fibrillation with RBBB, possible right ventricular hypertrophy. Currently in acute on chronic CHF. Recommend IV diuresis. Check TTE to re-evaluate aortic stenosis. (2) CHF (congestive heart failure) Current Visit: No Status: Chronic Acute on chronic diastolic and right sided CHF. Known preserved EF. Moderate . Moderate pulmonary hypertension. Fluid overload on exam. BNP 705. CT showed interstitial pulmonary edema. Change lasiv to IV. Strict I&O and daily weights. CHF education reviewed. Qualifiers: Congestive heart failure type: diastolic Congestive heart failure chronicity: unspecified congestive heart failure chronicity Qualified Code(s) : I50.30 - Unspecified diastolic (congestive) heart failure (3) CAD (coronary artery disease) Current Visit: Yes Status: Acute H/o prior Lcx stent in 2004. Last [facility] 2013 showed moderate non-obstructive CAD. Patent Lcx stents. 30% stenosis pLAD, 60% stenosis 1st diagonal, 40% stenosis pCX with patent stents 25 % stenosis pRCA, 35% stenosis mRCA, 15% stenosi mRCA. Preserved EF. Continue asa, statin, and bb. Qualifiers: Coronary Disease-Associated Artery/Lesion type: [place] artery [place] vs. transplanted heart: [place] heart Associated angina: angina presence unspecified Qualified Code(s): I25.10 - Atherosclerotic heart disease of [place] coronary artery without angina pectoris (4) Afib Current Visit: No Status: Chronic Appears to be rate controlled. Telemetry ordered. Continue bb. On coumadin for anticoagulation. Ok to hold for surgery. Restart as soon as she is felt to be safe from a bleeding/ surgery standpoint. Qualifiers: Atrial fibrillation type: chronic Qualified Code(s): I48.2 - Chronic atrial fibrillation Discussion w patient/family: The assessment and plan as outlined above was discussed with the patient and/or family members who expressed understanding and agreement. All questions were answered. Thank you for involving us in the care of your patient. Please call with any questions. History of Present Illness Consult date: 06/04/17 Requesting physician: Katina Malloy Consult reason: Pre-operative cardiovascular risk assessment Chief complaint: Abdominal pain History of present illness: Ms. Muñoz is a 82 year old female with a significant past history of CAD s/p LCX stent in 2004, moderate aortic stenosis, chronic diastolic CHF, atrial fibrillation on coumadin, and hypertension who presents with the c/o pain around her hernia. Cardiology was consulted for pre-operative risk assessment prior to possible hernia surgery. CT showed no obstruction of hernia. She also reports BLE edema starting one day prior to admission. C/o orthopnea. Reports weights are stable. Her daughter says that she drank 2L of soda in one day. She admits to dyspnea on exertion associated with chest tightness with minimal activity. States symptoms are chronic for her but have increased over the past six months. Denies chest pain currently. Denies palpitations. She was found to have BNP 755. BNP usually 200-300. CT showed portal hypertension and interstitial pulmonary edema. Previous cardiac testing: TTE 06/2016 at [facility] EF 60-65%. Moderate mitral annular calcification. Mild MR. Moderate aortic stenosis. Moderate pulmonary hypertension. [facility] 2013- moderate non-obstructive CAD. Patent LCX stents. Past Med Surg Social Fam HX - Past Medical History Medical history: arthritis, asthma, atrial fibrillation, cirrhosis, CHF, COPD, coronary artery disease, GERD, hyperlipidemia, hypertension, thyroid disease, other Psychiatric history: anxiety, depression - Past Surgical History Surgical History: angioplasty/stent, cholecystectomy, herniorrhaphy, hysterectomy, vascular surgery - Social History Smoking Status: Former smoker Smokeless Tobacco Status: No Alcohol use: none Drug use: none - Family History Mother Name: Nadege Petty Living Status: Age at : 80 Cause of : kidney failure Hx Family Cardiac Disorders: Yes Hx Family Respiratory Disorders: No Hx Family Cancer: Yes (breast cancer) Hx Family GI Disorders: No Hx Family Endocrine Disorder: Yes Hx Family Neuromuscular Disorders: No Hx Family Neurologic Disorders: Yes Hx Family HEENT Disorders: No Hx Family Autoimmune Disorders: No Medications and Allergies ARIPiprazole [Abilify] 5 mg PO HS 10/21/15 [History] Albuterol Sulfate [Albuterol Inhaler] 1 puff IH Q4HR 10/21/15 [History] Atenolol 50 mg PO DAILY 10/21/15 [History] Ferrous Sulfate [Iron] 650 mg PO HS 10/21/15 [History] Fluticasone Propionate [Flovent Hfa] 110 mcg IH BID 10/21/15 [History] Furosemide [Lasix] 40 mg PO BID 10/21/15 [History] Loratadine [Claritin] 10 mg PO HS 10/21/15 [History] Montelukast Sodium [Singulair] 5 mg PO HS 10/21/15 [History] Simvastatin [Zocor] 20 mg PO QPM 10/21/15 [History] Aspirin 81 mg PO DAILY #90 tab.chew 10/23/15 [Rx] Potassium Chloride [K-Tab ER] 10 meq PO DAILY 12/06/15 [History] traZODone [TraZODone] 50 mg PO HS 12/06/15 [History] Budesonide/Formoterol 160/4.5 [Symbicort 160/4.5] 2 puff IH BIDR 01/13/17 [ History] Escitalopram [Lexapro] 20 mg PO DAILY 01/13/17 [History] Oxygen 3 l NS CONT 01/13/17 [History] Warfarin [Coumadin] 7 mg PO DAILY 01/13/17 [History] Cholecalciferol (D-3) [Vitamin D] 1,000 unit PO DAILY 04/29/17 [History] Albuterol Neb [Proventil Neb] 2.5 mg IH Q4HR 06/04/17 [History] Ferrous Sulfate [Iron] 325 mg PO QAM 06/04/17 [History] Levothyroxine [Synthroid] 112 mcg PO 0630 06/04/17 [History] Tiotropium [Spiriva] 1 cap IH DAILY 06/04/17 [History] 3 Allergy/AdvReac Type Severity Reaction Status Date / Time morphine Allergy Anaphylaxis Verified 04/29/17 14:08 ranolazine [From Ranexa] Allergy Diarrhea Verified 04/29/17 14:08 etomidate [From Amidate] AdvReac Anaphylaxis Verified 04/29/17 14:08 iodine AdvReac Rash Verified 04/29/17 14:08 povidone-iodine AdvReac Rash Verified 04/29/17 14:08 [From Betadine] soap [From Betadine] AdvReac Rash Verified 04/29/17 14:08 All Systems Review: A 10-system review of systems was performed and is negative for pertinent findings except as documented above in the HPI. Physical Examination Vital Signs, Last 4 Hours Resp Pulse Ox 06/05/17 11:25 15 96 06/05/17 08:58 16 95 General: Conversant, No Apparent Distress HEENT: Atraumatic, Normocephaly, Mucus Membranes Moist Neck: No JVD, Normal carotid pulses Cardiac: Other (Irregularly irregular, 3/6 sytolic murmur) Lungs: Normal Breath Sounds, No Wheeze, Rales, Rhonchi Neuro: Alert and responsive, No focal deficits noted Abdomen: Soft, Non-Tender Skin: No rashes noted on visualized skin Musculoskeletal: No Chest Wall Tenderness Extremities: No Clubbing, No Cyanosis, Normal Pulses, Other (1+ edema up to her hips bilaterally) Results 06/05/17 08:13 06/05/17 08:13 Lab Results 06/05/17 06/05/17 06/05/17 08:13 08:13 08:13 WBC 4.1 L Hgb 10.0 L Hct 33.3 L Plt Count 77 L INR 2.8 Sodium 141 Potassium 3.5 Chloride 99 Carbon Dioxide 36 H BUN 20 Creatinine 1.02 Glucose 141 H Calcium 8.9 Magnesium 2.2 - Imaging and Cardiology Echo: report reviewed - EKG Interpretation EKG results cardiology: personally reviewed Consult Discharge Plan - Plan Referrals: Ace Dalton DO [Primary Care Provider] -
[2017-06-05] MEDS: Furosemide 40 MG/4 ML VIAL IVP SCH ×2 (13:04→18:41)
--- NOTE | 2017-06-05 13:06 | General Surgery Progress Note ---
Date of Encounter: 06/05/17 Time of Encounter: 13:04 - Assessment and Plan (1) Hypothyroid Current Visit: Yes Status: Chronic continue synthroid Qualifiers: Hypothyroidism type: unspecified Qualified Code(s): E03.9 - Hypothyroidism , unspecified (2) Ventral hernia without obstruction or gangrene Current Visit: Yes Status: Chronic will await GI and cardiology input regarding clearance for surgery in future for ventral hernia (3) Ascites Current Visit: Yes Status: Chronic due to cirhrosis of liver Qualifiers: Ascites type: other type Qualified Code(s): R18.8 - Other ascites (4) Cirrhosis Current Visit: Yes Status: Chronic inr 2.6 but elevated due to coumadin anticoagulation albumin 3.6 T bilirubin 1.1 mild abdominal ascites and no encephalopathy patient is Child-mckay A consult GI for new dx cirrhosis with ascites Qualifiers: Hepatic cirrhosis type: unspecified hepatic cirrhosis Ascites presence: with ascites Qualified Code(s): K74.60 - Unspecified cirrhosis of liver (5) Anemia Current Visit: No Status: Chronic Qualifiers: Anemia type: other cause Other causes of anemia: other cause, not classified Qualified Code(s): D64.89 - Other specified anemias (6) Afib Current Visit: No Status: Chronic currently anticoagulated on coumadin Qualifiers: Atrial fibrillation type: chronic Qualified Code(s): I48.2 - Chronic atrial fibrillation (7) CHF (congestive heart failure) Current Visit: No Status: Chronic patient BNP currently 755 with SOB and dizziness Qualifiers: Congestive heart failure type: diastolic Congestive heart failure chronicity: unspecified congestive heart failure chronicity Qualified Code(s) : I50.30 - Unspecified diastolic (congestive) heart failure (8) Hypertension Current Visit: No Status: Chronic currently normotensive, on home medication, monitor Qualifiers: Hypertension type: essential hypertension Qualified Code(s): I10 - Essential (primary) hypertension Subjective Patient reports: no new complaints Objective Vital Signs - Last 8 Hours Temp Pulse Resp BP Pulse Ox 06/05/17 12:18 97.6 F 63 15 118/72 92 06/05/17 11:25 15 96 06/05/17 08:58 16 95 06/05/17 06:41 97.4 F L 61 17 109/72 96 Intake and Output 06/04/17 06/05/17 06/05/17 23:59 07:59 15:59 Intake Total 240 / 240 1397 / 1397 Output Total 750 / 750 500 / 500 Balance 240 / 240 647 / 647 -500 / -500 Intake: IV Fluids 897 / 897 0.9 % Sodium Chloride 1, 897 / 897 000 ML @ 50 mls/hr IVC . Q20H JOSE F Rx#:[id number] Oral 240 / 240 500 / 500 Output: Urine 750 / 750 500 / 500 Other: Meal Dinner NPO Percent of Meal Consumed 75% # Voids 2 Weight 92.6 kg Blood Glucose* 104 Patient Weight 06/05/17 23:59 Weight 92.6 kg - General physical appearance well developed, well nourished, no pain - Eyes PERRL, normal ocular movement - ENT normal mucosa, normocephalic - Neck Neck exam: trachea midline - Respiratory normal expansion, normal respiratory effort - Cardiovascular Cardiovascular exam: Present: murmurs - Abdomen Abdomen: Present: bowel sounds present, soft, tender (at ventral hernia site) - Integumentary no rash, no growths - Neurologic CN 2-12 grossly intact - Musculoskeletal normal posture - Psychiatric oriented to time, memory intact - Labs 06/05/17 08:13 06/05/17 08:13 Diabetes panel 06/05/17 Range/Units 08:13 Sodium 141 (136-145) mEq/L Potassium 3.5 (3.5-4.5) mEq/L Chloride 99 (98-109) mEq/L Carbon Dioxide 36 H (19-29) mEq/L BUN 20 (7-20) mg/dL Creatinine 1.02 (0.57-1.11) mg/dL Glucose 141 H (70-99) mg/dL Calcium 8.9 (8.6-10.8) mg/dL Calcium panel 06/05/17 Range/Units 08:13 Calcium 8.9 (8.6-10.8) mg/dL Phosphorus 3.2 (2.3-4.7) mg/dL Pituitary panel 06/05/17 Range/Units 08:13 Sodium 141 (136-145) mEq/L Potassium 3.5 (3.5-4.5) mEq/L Chloride 99 (98-109) mEq/L Carbon Dioxide 36 H (19-29) mEq/L BUN 20 (7-20) mg/dL Creatinine 1.02 (0.57-1.11) mg/dL Glucose 141 H (70-99) mg/dL Calcium 8.9 (8.6-10.8) mg/dL Adrenal panel 06/05/17 Range/Units 08:13 Sodium 141 (136-145) mEq/L Potassium 3.5 (3.5-4.5) mEq/L Chloride 99 (98-109) mEq/L Carbon Dioxide 36 H (19-29) mEq/L BUN 20 (7-20) mg/dL Creatinine 1.02 (0.57-1.11) mg/dL Glucose 141 H (70-99) mg/dL Calcium 8.9 (8.6-10.8) mg/dL Consult Discharge Plan - Plan Referrals: Ace Dalton DO [Primary Care Provider] - Katina Malloy MD [Partnered Physician] - (June 24 at 1:50 pm)
[2017-06-05] MEDS ORDERED: *HR* Propofol 200 MG/20 ML VIAL IVP ONE (15:21)
--- NOTE | 2017-06-05 15:24 | Internal Med Progress Note ---
Date of Encounter: 06/05/17 Time of Encounter: 15:23 - Assessment and plan (1) Ventral hernia without obstruction or gangrene Current Visit: Yes Status: Chronic Assessment and plan: Surgery on board and consultation appreciated awaiting pre-op clearance from cardiology will continue supportive care pain control (2) Diastolic CHF, chronic Current Visit: No Status: Chronic Assessment and plan: acute on chronic CHF decompensation cardiology input appreciated continue iv diuresis fluid restriction diet monitor daily weights, strict I/Os O2 supplementation as needed will continue to closely monitor (3) Hypertension Current Visit: No Status: Chronic Assessment and plan: BP within acceptable range continue home medications Qualifiers: Hypertension type: essential hypertension Qualified Code(s): I10 - Essential (primary) hypertension (4) Cirrhosis Current Visit: Yes Status: Chronic Assessment and plan: s/p EGD-grade 1 esophageal varices outpatient GI follow up recommended Qualifiers: Hepatic cirrhosis type: unspecified hepatic cirrhosis Ascites presence: with ascites Qualified Code(s): K74.60 - Unspecified cirrhosis of liver (5) Hypothyroid Current Visit: Yes Status: Chronic Assessment and plan: continue home dose of levothyroxine Qualifiers: Hypothyroidism type: unspecified Qualified Code(s): E03.9 - Hypothyroidism , unspecified (6) CAD (coronary artery disease) Current Visit: Yes Status: Acute Assessment and plan: continue home meds (ASA, Statin, BB) Qualifiers: Coronary Disease-Associated Artery/Lesion type: [place] artery [place] vs. transplanted heart: [place] heart Associated angina: angina presence unspecified Qualified Code(s): I25.10 - Atherosclerotic heart disease of [place] coronary artery without angina pectoris (7) Afib Current Visit: No Status: Chronic Assessment and plan: Rate controlled with BB anticoagulated with Coumadin will hold coumadin at this time for possible surgery INR within therapeutic range, will continue to monitor Qualifiers: Atrial fibrillation type: chronic Qualified Code(s): I48.2 - Chronic atrial fibrillation (8) Constipation Current Visit: Yes Status: Acute Assessment and plan: Colace and miralax Qualifiers: Constipation type: unspecified constipation type Qualified Code(s): K59.00 - Constipation, unspecified - Subjective Interval history: Patient seen and examined at bedside. Reports of constipation but denies any other discomfort at this time. S/p EGD this morning which showed grade 1 varices and no acute bleeding reported Awaiting 2D echo for cardiac clearance for surgery - Constitutional Vitals: Temp Pulse Resp BP Pulse Ox 97.8 F 100 20 131/76 93 06/05/17 14:47 06/05/17 14:47 06/05/17 14:47 06/05/17 14:47 06/05/17 14:47 General appearance: Present: A&O X 3, morbidly obese, no acute distress, answers questions appropriately - Head Head exam: Present: atraumatic, normocephalic - Eye Eye exam: Present: conjuntiva pink, sclera anicteric - Respiratory Respiratory exam: Present: rales (bibasilar rales). Absent: accessory muscle use, respiratory distress, rhonchi, wheezes - Cardiovascular Cardiovascular exam: Present: RRR, +S1, +S2. Absent: diastolic murmur, gallop, rubs, systolic murmur - GI/Abdominal GI/Abdominal exam: Present: normal bowel sounds (ventral hernia), soft. Absent : tenderness - Extremities Exam Extremities exam: Present: warm, radial pulses palpable and symmetrical. Absent : calf tenderness - Neurological Exam Neurological exam: Present: alert, oriented X3 - Psychiatric Psychiatric exam: Present: normal affect, normal mood Internal Medicine: Result - Labs CBC & Chem 7: 06/05/17 08:13 06/05/17 08:13 Labs: Short CBC 06/05/17 Range/Units 08:13 WBC 4.1 L (4.3-11.1) K/mcL Hgb 10.0 L (11.5-15.4) g/dL Hct 33.3 L (35.3-44.9) % Plt Count 77 L (140-400) K/mcL Neutrophils # 2.8 (1.6-8.9) K/mcL BMP 06/05/17 08:13 Sodium 141 Potassium 3.5 Chloride 99 Carbon Dioxide 36 H BUN 20 Creatinine 1.02 Glucose 141 H Calcium 8.9 - ABG Interpretation ABG results: PT/INR, D-dimer PT 30.3 Seconds (9.4-12.1) H 06/05/17 08:13 Consult Discharge Plan - Plan Referrals: Katina Malloy MD [Partnered Physician] - (June 24 at 1:50 pm) Ace Dalton DO [Primary Care Provider] -
[2017-06-05] MEDS ORDERED: Furosemide 40 MG TABLET PO SCH (17:00)
[2017-06-05] MEDS: traZODone 50 MG TABLET PO SCH (22:30)
[2017-06-05] MEDS: ARIPiprazole 2 MG TABLET PO SCH (22:30)
[2017-06-05] MEDS: ARIPiprazole 5 MG TABLET PO SCH (22:32)
[2017-06-06 06:45] LABS: Basophils % 0.3 %; Eosinophils # 0.1 K/mcL (0.0-0.6); Eosinophils % 2.3 %; Hematocrit 31.4 % (35.3-44.9); Hemoglobin 9.7 g/dL (11.5-15.4); INR 2.3; Immature Granulocytes % 0.3 % (0-4); Lymphocytes % 25.5 %; Mean Corpuscular HGB Conc 30.9 g/dL (31.6-35.5); Mean Corpuscular Hemoglobin 29.4 pg (28.0-33.3); Mean Corpuscular Volume 95.2 fL (83.0-100.0); Mean Platelet Volume 10.6 fL (9.4-12.4); Monocytes # 0.3 K/mcL (0.0-1.3); Monocytes % 7.3 %; Neutrophils # 2.6 K/mcL (1.6-8.9); Prothrombin Time 25.6 Seconds (9.4-12.1); Red Cell Distribution Width 14.2 % (11.5-14.5); Segmented Neutrophils % 64.3 %
[2017-06-06 06:46] LABS: Platelet Count 83 K/mcL (140-400)
[2017-06-06 06:57] LABS: BUN/Creatinine Ratio 17 (6-26); Blood Urea Nitrogen 16 mg/dL (7-20); Calcium 8.6 mg/dL (8.6-10.8); Carbon Dioxide 34 mEq/L (19-29); Chloride 98 mEq/L (98-109); Glucose 92 mg/dL (70-99); Magnesium 2.2 mg/dL (1.6-2.6); Osmolality,Calculated 293 (280-300); Potassium 3.9 mEq/L (3.5-4.5); Sodium 141 mEq/L (136-145); eGFR For African Americans > 60 (> 60); eGFR For Non-African Americans 57 (> 60)
[2017-06-06] MEDS: Budesonide/Formoterol 160/4.5 MDI IH SCH ×2 (08:20→20:27)
[2017-06-06] MEDS: Tiotropium 18 MCG inhalation IH SCH (08:21)
[2017-06-06] MEDS: Aspirin 81 MG TAB.CHEW PO SCH (09:45)
[2017-06-06] MEDS: Spironolactone 25 MG TABLET PO SCH (09:45)
[2017-06-06] MEDS: Furosemide 40 MG/4 ML VIAL IVP SCH ×2 (09:46→18:21)
--- NOTE | 2017-06-06 09:49 | Internal Med Progress Note ---
Date of Encounter: 06/06/17 Time of Encounter: 09:47 - Assessment and plan (1) Ventral hernia without obstruction or gangrene Current Visit: Yes Status: Chronic Assessment and plan: Surgery on board and consultation appreciated awaiting pre-op clearance from cardiology will continue supportive care pain control (2) Diastolic CHF, chronic Current Visit: No Status: Chronic Assessment and plan: acute on chronic CHF decompensation cardiology input appreciated continue iv diuresis fluid restriction diet monitor daily weights, strict I/Os O2 supplementation as needed will continue to closely monitor (3) Hypertension Current Visit: No Status: Chronic Assessment and plan: BP within acceptable range continue home medications Qualifiers: Hypertension type: essential hypertension Qualified Code(s): I10 - Essential (primary) hypertension (4) Cirrhosis Current Visit: Yes Status: Chronic Assessment and plan: s/p EGD-grade 1 esophageal varices outpatient GI follow up recommended Qualifiers: Hepatic cirrhosis type: unspecified hepatic cirrhosis Ascites presence: with ascites Qualified Code(s): K74.60 - Unspecified cirrhosis of liver (5) Hypothyroid Current Visit: Yes Status: Chronic Assessment and plan: continue home dose of levothyroxine Qualifiers: Hypothyroidism type: unspecified Qualified Code(s): E03.9 - Hypothyroidism , unspecified (6) CAD (coronary artery disease) Current Visit: Yes Status: Acute Assessment and plan: continue home meds (ASA, Statin, BB) Qualifiers: Coronary Disease-Associated Artery/Lesion type: [place] artery [place] vs. transplanted heart: [place] heart Associated angina: angina presence unspecified Qualified Code(s): I25.10 - Atherosclerotic heart disease of [place] coronary artery without angina pectoris (7) Afib Current Visit: No Status: Chronic Assessment and plan: Rate controlled with BB anticoagulated with Coumadin INR within therapeutic range, will continue to monitor Qualifiers: Atrial fibrillation type: chronic Qualified Code(s): I48.2 - Chronic atrial fibrillation (8) Constipation Current Visit: Yes Status: Acute Assessment and plan: pt reports minimal relief with colace will d/c colace and start senna plus 2tabs PO BID continue miralax prn Qualifiers: Constipation type: unspecified constipation type Qualified Code(s): K59.00 - Constipation, unspecified (9) UTI (urinary tract infection) Current Visit: Yes Status: Acute Assessment and plan: Urine culture preliminary report positive for Enteroccocus species will continue Ceftriaxone will follow up official culture report Qualifiers: Urinary tract infection type: site unspecified Hematuria presence: without hematuria Qualified Code(s): N39.0 - Urinary tract infection, site not specified - Subjective Interval history: Patient seen and examined at bedside. Resting in bed and reports of feeling better compared to previous day. EGD: LA grade A reflux esophagitis, Grade I esophageal varices, Portal hypertensive gastropathy Echo: LVEF 65%, severely dilated LA, mild to moderate aortic stenosis, severe pulmonary hypertension, small pericardial effusion present - Constitutional Vitals: Temp Pulse Resp BP Pulse Ox 97.6 F 62 18 137/85 96 06/06/17 06:53 06/06/17 06:53 06/06/17 08:23 06/06/17 06:53 06/06/17 08:23 General appearance: Present: cooperative, A&O X 3, morbidly obese, pleasant, no acute distress, answers questions appropriately - Head Head exam: Present: atraumatic, normocephalic - Eye Eye exam: Present: conjuntiva pink, sclera anicteric - Respiratory Respiratory exam: Absent: respiratory distress, wheezes - Cardiovascular Cardiovascular exam: Present: RRR, +S1, +S2, systolic murmur. Absent: bradycardia, JVD, tachycardia - GI/Abdominal GI/Abdominal exam: Present: normal bowel sounds, soft, no peritoneal signs. Absent: distended, tenderness Additional comments: midline ventral hernia-tender to palpation - Extremities Exam Extremities exam: Present: pedal edema (2+ pitting edema), warm, radial pulses palpable and symmetrical. Absent: calf tenderness - Neurological Exam Neurological exam: Present: alert, oriented X3 - Psychiatric Psychiatric exam: Present: normal affect, normal mood Internal Medicine: Result - Labs CBC & Chem 7: 06/06/17 05:51 06/06/17 05:51 Labs: Short CBC 06/06/17 Range/Units 05:51 WBC 4.0 L (4.3-11.1) K/mcL Hgb 9.7 L (11.5-15.4) g/dL Hct 31.4 L (35.3-44.9) % Plt Count 83 L (140-400) K/mcL Neutrophils # 2.6 (1.6-8.9) K/mcL BMP 06/06/17 05:51 Sodium 141 Potassium 3.9 Chloride 98 Carbon Dioxide 34 H BUN 16 Creatinine 0.94 Glucose 92 Calcium 8.6 - ABG Interpretation ABG results: PT/INR, D-dimer PT 25.6 Seconds (9.4-12.1) H 06/06/17 05:51 - Impressions Impressions Echocardiogram 06/05/17 10:54 Impressions: LVEF 65%. Normal LV chamber size, wall thickness and function. Indeterminate diastolic function. Mildly dilated right ventricle with normal function. Severely dilated left atrium. Moderately dilated right atrium. Mildly calcified aortic valve leaflets. Mild-moderate aortic stenosis. Mean gradient 21 mmHg. Mild mitral regurgitation. Mild-moderate tricuspid regurgitation. Severe pulmonary hypertension. Estimated RVSP is > 75 mmHg. There is a small pericardial effusion present. There is no echocardiographic evidence of tamponade. Left Ventricular Wall Motion: Rest Echo Findings All wall segments showed normal motion. Findings: Study Quality * Technically adequate exam. ECG Findings * Atrial fibrillation. Left Ventricle * LVEF 65%. * Normal LV chamber size, wall thickness and function. * Indeterminate diastolic function. Right Ventricle * Mildly dilated right ventricle with normal function. Left Atrium * Severely dilated left atrium. Right Atrium * Moderately dilated right atrium. Interatrial Septum * No evidence of PFO by color Doppler. Aortic Valve * Trileaflet aortic valve. * Mildly calcified aortic valve leaflets. * Trace aortic regurgitation. * Mild-moderate aortic stenosis. Mean gradient 21 mmHg. Mitral Valve * Mild posterior mitral annular calcification. * Mild mitral regurgitation. * No mitral stenosis. Tricuspid Valve * Normal tricuspid valve structure. * Mild-moderate tricuspid regurgitation. * Severe pulmonary hypertension. * Estimated RVSP is > 75 mmHg. * Estimated RA pressure is 5 mmHg. Pulmonic Valve * Normal pulmonic valve structure and function. * Trace pulmonic regurgitation. Aorta * Normally sized aortic root. Pericardium * There is a small pericardial effusion present. * There is no echocardiographic evidence of tamponade. IVC * Normal IVC dimensions and inspiratory collapse. Pulmonary Artery * Normal visualized portions of the main pulmonary artery. Consult Discharge Plan - Plan Referrals: Katina Malloy MD [Partnered Physician] - (June 24 at 1:50 pm) Ace Dalton DO [Primary Care Provider] -
--- NOTE | 2017-06-06 10:58 | Cardiology Progress Note ---
Date of Encounter: 06/06/17 Time of Encounter: 10:40 Assessment and Plan (1) Pre-operative cardiovascular examination Current Visit: Yes Status: Acute Patient has history of previous PCI to her LCX artery, DCHF, atrial fibrillation , and moderate aortic stenosis. C/o chronic dyspnea and chest pain with exertion that is mildly increased from baseline. Last cardiac work-up includes: TTE 06/2016 at [facility] EF 60-65%. Moderate mitral annular calcification. Mild MR. Moderate aortic stenosis. Moderate pulmonary hypertension. [facility] 2013- moderate non-obstructive CAD. Patent LCX stents. Troponin this admission is negative. BNP 700's. EKG shows rate controlled atrial fibrillation with RBBB, possible right ventricular hypertrophy. Dyspnea/edema likely multifactorial due to diastolic CHF and cirrhosis. TTE: LVEF 65%, mildly dilated right ventricle with normal function, severely dilated left atrium, moderately dilated right atrium, mildly calcified aortic valve leaflets, Mild-moderate (MG= 21 mmHg) mild MR, Mild-moderate tricuspid regurgitatio, severe pulmonary hypertension, estimated RVSP is > 75 mmHg, there is a small pericardial effusion present, without echocardiographic evidence of tamponade, normal wall motion. Due to severe PH, she is a high risk surgical candidate to proceed with elective repair of hernia. Discussed recommendations with patient and understands risk, at this point she reports she is not going to proceed with surgery. (2) CAD (coronary artery disease) Current Visit: Yes Status: Acute H/o prior Lcx stent in 2004. Last [facility] 2013 showed moderate non-obstructive CAD. Patent Lcx stents. 30% stenosis pLAD, 60% stenosis 1st diagonal, 40% stenosis pCX with patent stents 25 % stenosis pRCA, 35% stenosis mRCA, 15% stenosi mRCA. TTE demonstrated preserved LVEF, 65% with normal wall motion. Continue asa, statin, and bb. Qualifiers: Coronary Disease-Associated Artery/Lesion type: [place] artery [place] vs. transplanted heart: [place] heart Associated angina: angina presence unspecified Qualified Code(s): I25.10 - Atherosclerotic heart disease of [place] coronary artery without angina pectoris (3) Afib Current Visit: Yes Status: Chronic Appears to be rate controlled. Telemetry ordered, not applied. Continue bb. On coumadin for anticoagulation, INR therapeutic. Discussed with primary service, plan to resume coumadin tonight as surgery is not indicated at this point. Qualifiers: Atrial fibrillation type: chronic Qualified Code(s): I48.2 - Chronic atrial fibrillation (4) CHF (congestive heart failure) Current Visit: Yes Status: Chronic Acute on chronic diastolic and right sided CHF. Known preserved EF. Moderate . Moderate pulmonary hypertension. Fluid overload on exam. BNP 705. CT showed interstitial pulmonary edema. Change lasiv to IV; recommend additional 24 hours of IV diuresis, change to po by discharge. Na/fluid restriction diet, Strict I&O and daily weights. CHF education reviewed. Qualifiers: Congestive heart failure type: diastolic Congestive heart failure chronicity: chronic Qualified Code(s): I50.32 - Chronic diastolic (congestive ) heart failure Discussion w patient/family: The assessment and plan as outlined above was discussed with the patient and/or family members who expressed understanding and agreement. All questions were answered. Thank you for involving us in the care of your patient. Please call with any questions. The patient will be discussed and reviewed with Dr. Pasquale Okeefe; Cardiology will sign-off, please call with questions. Will coordinate appt in the outpatient setting. Subjective Principal diagnosis: pre-operative cardiovascular exam Interval history: Seen and examined. Reports dyspnea after walk in hallway today. Denies abdominal pain; reports tenderness with palpation. No chest pain/discomfort. Objective Vital Signs, Last 4 Hours Resp Pulse Ox 06/06/17 08:23 18 96 General: Conversant HEENT: Atraumatic, Normocephaly Cardiac: Other (irregularly irregular) Neuro: Alert and responsive Abdomen: Soft, Other (large, distended. Tenderness with palpation. ) Skin: No rashes noted on visualized skin Musculoskeletal: No Chest Wall Tenderness Extremities: Other (+1-2 BLE to knees) Results 06/06/17 05:51 06/06/17 05:51 Lab Results 06/06/17 06/06/17 06/06/17 05:51 05:51 05:51 WBC 4.0 L Hgb 9.7 L Hct 31.4 L Plt Count 83 L INR 2.3 Sodium 141 Potassium 3.9 Chloride 98 Carbon Dioxide 34 H BUN 16 Creatinine 0.94 Glucose 92 Calcium 8.6 Magnesium 2.2 Active Medications Albuterol Sulfate (Albuterol Inhaler) 1 puff IH Q4HR JOSE F Stop: 12/04/17 16:01 Last Admin: 06/06/17 08:21 Dose: 1 puff Aripiprazole (Abilify) 5 mg PO HS JOSE F Stop: 12/05/17 21:46 Last Admin: 06/05/17 22:32 Dose: 5 mg Aspirin (Aspirin) 81 mg PO DAILY JOSE F Stop: 12/05/17 09:01 Last Admin: 06/06/17 09:45 Dose: 81 mg Atenolol (Tenormin) 50 mg PO DAILY JOSE F Stop: 12/05/17 09:01 Last Admin: 06/06/17 09:45 Dose: 50 mg Budesonide/Formoterol Fumarate (Symbicort) 2 puff IH BIDR JOSE F PRN Reason: Protocol Stop: 12/04/17 22:01 Last Admin: 06/06/17 08:20 Dose: 2 puff Escitalopram Oxalate (Lexapro) 20 mg PO DAILY JOSE F Stop: 12/06/17 09:01 Last Admin: 06/06/17 09:45 Dose: 20 mg Ferrous Sulfate (Ferrous Sulfate) 325 mg PO QAM JOSE F Stop: 12/05/17 09:01 Last Admin: 06/06/17 09:45 Dose: 325 mg Furosemide (Lasix) 40 mg IVP BIDDIURETIC JOSE F Stop: 12/05/17 12:46 Last Admin: 06/06/17 09:46 Dose: 40 mg Hydromorphone HCl (Dilaudid) 0.5 mg IVP Q4HR PRN PRN Reason: Moderate Pain Stop: 12/04/17 15:18 Last Admin: 06/04/17 18:30 Dose: 0.5 mg Ceftriaxone Sodium 1,000 mg/ (Dextrose) 100 mls @ 200 mls/hr IVPB Q24H JOSE F Stop: 12/05/17 08:01 Last Admin: 06/06/17 09:44 Dose: 200 mls/hr Levothyroxine Sodium (Synthroid) 112 mcg PO 0630 JOSE F Stop: 12/05/17 06:31 Last Admin: 06/06/17 06:24 Dose: Not Given Naloxone HCl (Narcan) 0.4 mg IVP Q2MIN PRN PRN Reason: Opioid Reversal Stop: 12/04/17 15:18 Oxycodone HCl (Roxicodone) 5 mg PO Q6HR PRN PRN Reason: mild pain Stop: 03/16/18 15:18 Polyethylene Glycol (Miralax) 17 gm PO DAILY PRN PRN Reason: Constipation Stop: 12/05/17 15:24 Last Admin: 06/05/17 17:22 Dose: 17 gm Potassium Chloride (Potassium Chloride) 10 meq PO DAILY JOSE F Stop: 12/05/17 11:01 Last Admin: 06/06/17 09:45 Dose: 10 meq Senna/Docusate Sodium (Senna Plus) 2 each PO BID JOSE F PRN Reason: Protocol Stop: 12/06/17 10:01 Simvastatin (Zocor) 20 mg PO QPM JOSE F PRN Reason: Protocol Stop: 12/05/17 18:01 Last Admin: 06/05/17 18:41 Dose: 20 mg Spironolactone (Aldactone) 25 mg PO DAILY JOSE F Stop: 12/04/17 16:16 Last Admin: 06/06/17 09:45 Dose: 25 mg Tiotropium [place] (Spiriva) 18 mcg IH DAILY JOSE F Stop: 12/05/17 09:01 Last Admin: 06/06/17 08:21 Dose: 18 mcg Trazodone HCl (Trazodone) 50 mg PO HS [facility] Stop: 12/04/17 21:01 Last Admin: 06/05/17 22:30 Dose: 50 mg Warfarin Sodium (Coumadin Perpt) 1 each PO DAILY@1800 PRN PRN Reason: SEE COMMENTS Stop: 12/06/17 18:01 - Imaging and Cardiology Echo: report reviewed Other Results: Telemetry not applied. - EKG Interpretation EKG results cardiology: personally reviewed Consult Discharge Plan - Plan Referrals: Katina Malloy MD [Partnered Physician] - (June 24 at 1:50 pm) Ace Dalton DO [Primary Care Provider] -
[2017-06-06] MEDS ORDERED: Warfarin perPT PO PRN (18:00)
[2017-06-06] MEDS: Warfarin 4 MG, Warfarin 3 MG PO SCH (18:21)
[2017-06-06] MEDS: Sennosides/Docusate Sodium TABLET PO SCH ×2 (18:22→21:50)
[2017-06-06] MEDS: ARIPiprazole 5 MG TABLET PO SCH (21:50)
[2017-06-06] MEDS: traZODone 50 MG TABLET PO SCH (21:50)
[2017-06-07 05:08] LABS: Hematocrit 29.9 % (35.3-44.9); Immature Granulocytes % 0.3 % (0-4); Mean Corpuscular Volume 94.9 fL (83.0-100.0); Red Blood Count 3.15 M/mcL (3.82-4.97)
[2017-06-07 05:10] LABS: Basophils % 0.8 %; Eosinophils # 0.1 K/mcL (0.0-0.6); Eosinophils % 2.7 %; Immature Platelets 3.3 % (1.1-6.1); Lymphocytes % 26.8 %; Mean Corpuscular HGB Conc 30.1 g/dL (31.6-35.5); Mean Corpuscular Hemoglobin 28.6 pg (28.0-33.3); Mean Platelet Volume 10.8 fL (9.4-12.4); Monocytes # 0.4 K/mcL (0.0-1.3); Monocytes % 10.7 %; Neutrophils # 2.2 K/mcL (1.6-8.9); Red Cell Distribution Width 14.5 % (11.5-14.5); Segmented Neutrophils % 58.7 %
[2017-06-07 05:11] LABS: Platelet Count 85 K/mcL (140-400)
[2017-06-07 05:16] LABS: INR 1.7; Prothrombin Time 18.8 Seconds (9.4-12.1)
[2017-06-07 05:23] LABS: BUN/Creatinine Ratio 19 (6-26); Blood Urea Nitrogen 20 mg/dL (7-20); Calcium 8.7 mg/dL (8.6-10.8); Carbon Dioxide 37 mEq/L (19-29); Chloride 98 mEq/L (98-109); Glucose 99 mg/dL (70-99); Osmolality,Calculated 295 (280-300); Phosphorous 3.9 mg/dL (2.3-4.7); Potassium 3.6 mEq/L (3.5-4.5); Sodium 141 mEq/L (136-145); eGFR For African Americans > 60 (> 60); eGFR For Non-African Americans 50 (> 60)
[2017-06-07] MEDS: Budesonide/Formoterol 160/4.5 MDI IH SCH ×2 (07:31→20:26)
[2017-06-07] MEDS: Tiotropium 18 MCG inhalation IH SCH (07:32)
[2017-06-07] MEDS: Aspirin 81 MG TAB.CHEW PO SCH (09:13)
[2017-06-07] MEDS: Spironolactone 25 MG TABLET PO SCH (09:13)
[2017-06-07] MEDS: Furosemide 40 MG/4 ML VIAL IVP SCH ×2 (09:13→17:24)
[2017-06-07] MEDS: Sennosides/Docusate Sodium TABLET PO SCH ×2 (09:14→20:09)
--- NOTE | 2017-06-07 11:14 | Internal Med Progress Note ---
Date of Encounter: 06/07/17 Time of Encounter: 11:11 - Assessment and plan (1) Ventral hernia without obstruction or gangrene Current Visit: Yes Status: Chronic Assessment and plan: Surgery on board and consultation appreciated patient not willing to go through surgery at this time states her pain is controlled at this time continue supportive care and outpatient follow up with surgery (2) Diastolic CHF, chronic Current Visit: No Status: Chronic Assessment and plan: acute on chronic CHF decompensation cardiology input appreciated continue iv diuresis fluid restriction diet monitor daily weights, strict I/Os O2 supplementation as needed will continue to closely monitor (3) Hypertension Current Visit: No Status: Chronic Assessment and plan: BP within acceptable range continue home medications Qualifiers: Hypertension type: essential hypertension Qualified Code(s): I10 - Essential (primary) hypertension (4) Cirrhosis Current Visit: Yes Status: Chronic Assessment and plan: s/p EGD-grade 1 esophageal varices outpatient GI follow up recommended Qualifiers: Hepatic cirrhosis type: unspecified hepatic cirrhosis Ascites presence: with ascites Qualified Code(s): K74.60 - Unspecified cirrhosis of liver (5) Hypothyroid Current Visit: Yes Status: Chronic Assessment and plan: continue home dose of levothyroxine Qualifiers: Hypothyroidism type: unspecified Qualified Code(s): E03.9 - Hypothyroidism , unspecified (6) CAD (coronary artery disease) Current Visit: Yes Status: Acute Assessment and plan: continue home meds (ASA, Statin, BB) Qualifiers: Coronary Disease-Associated Artery/Lesion type: [place] artery [place] vs. transplanted heart: [place] heart Associated angina: angina presence unspecified Qualified Code(s): I25.10 - Atherosclerotic heart disease of [place] coronary artery without angina pectoris (7) Afib Current Visit: Yes Status: Chronic Assessment and plan: Rate controlled with BB anticoagulated with Coumadin continue coumdain and monitor INR, goal INR: 2-3 Qualifiers: Atrial fibrillation type: chronic Qualified Code(s): I48.2 - Chronic atrial fibrillation (8) Constipation Current Visit: Yes Status: Acute Assessment and plan: pt reports of having a bowel movement will continue senna plus 2tabs PO BID continue miralax prn Qualifiers: Constipation type: unspecified constipation type Qualified Code(s): K59.00 - Constipation, unspecified (9) UTI (urinary tract infection) Current Visit: Yes Status: Acute Assessment and plan: Urine culture preliminary report positive for Enteroccocus species will continue Ceftriaxone will follow up official culture report Qualifiers: Urinary tract infection type: site unspecified Hematuria presence: without hematuria Qualified Code(s): N39.0 - Urinary tract infection, site not specified - Subjective Interval history: Patient seen and examined at bedside. Resting in bed and reports of feeling better compared to previous day. States she does not have any pain at this time and does not want any surgical intervention at this time. Noted to have bibasilar crackles and will need another day of IV diuresis. Pt in agreement with this plan. EGD: LA grade A reflux esophagitis, Grade I esophageal varices, Portal hypertensive gastropathy Echo: LVEF 65%, severely dilated LA, mild to moderate aortic stenosis, severe pulmonary hypertension, small pericardial effusion present - Constitutional Vitals: Temp Pulse Resp BP Pulse Ox 97.6 F 55 14 114/57 98 06/07/17 10:48 06/07/17 10:48 06/07/17 10:48 06/07/17 10:48 06/07/17 10:48 General appearance: Present: cooperative, A&O X 3, morbidly obese, pleasant, no acute distress, answers questions appropriately - Head Head exam: Present: atraumatic, normocephalic - Eye Eye exam: Present: conjuntiva pink, sclera anicteric - Respiratory Respiratory exam: Absent: respiratory distress, wheezes Additional comments: bibasilar crackles - Cardiovascular Cardiovascular exam: Present: RRR, +S1, +S2. Absent: diastolic murmur, gallop, rubs, systolic murmur - GI/Abdominal GI/Abdominal exam: Present: normal bowel sounds, soft, no peritoneal signs. Absent: distended, tenderness - Extremities Exam Extremities exam: Present: calf tenderness, pedal edema, warm, radial pulses palpable and symmetrical - Neurological Exam Neurological exam: Present: alert, oriented X3 - Psychiatric Psychiatric exam: Present: normal affect, normal mood Internal Medicine: Result - Labs CBC & Chem 7: 06/07/17 04:14 06/07/17 04:14 Labs: Short CBC 06/07/17 Range/Units 04:14 WBC 3.7 L (4.3-11.1) K/mcL Hgb 9.0 L (11.5-15.4) g/dL Hct 29.9 L (35.3-44.9) % Plt Count 85 L (140-400) K/mcL Neutrophils # 2.2 (1.6-8.9) K/mcL BMP 06/07/17 04:14 Sodium 141 Potassium 3.6 Chloride 98 Carbon Dioxide 37 H BUN 20 Creatinine 1.06 Glucose 99 Calcium 8.7 - ABG Interpretation ABG results: PT/INR, D-dimer PT 18.8 Seconds (9.4-12.1) H 06/07/17 04:14 Consult Discharge Plan - Plan Referrals: Katina Malloy MD [Partnered Physician] - (June 24 at 1:50 pm) Ace Dalton DO [Primary Care Provider] -
[2017-06-07] MEDS: Warfarin 4 MG, Warfarin 3 MG PO SCH (17:24)
[2017-06-07] MEDS: traZODone 50 MG TABLET PO SCH (20:09)
[2017-06-07] MEDS: ARIPiprazole 5 MG TABLET PO SCH (20:10)
[2017-06-08 04:22] LABS: Immature Granulocytes % 0.3 % (0-4)
[2017-06-08 04:24] LABS: Basophils % 0.3 %; Eosinophils # 0.1 K/mcL (0.0-0.6); Eosinophils % 2.5 %; Hematocrit 30.5 % (35.3-44.9); Hemoglobin 9.2 g/dL (11.5-15.4); Immature Platelets 3.4 % (1.1-6.1); Lymphocytes # 0.9 K/mcL (0.6-4.6); Lymphocytes % 26.1 %; Mean Corpuscular HGB Conc 30.2 g/dL (31.6-35.5); Mean Corpuscular Hemoglobin 28.4 pg (28.0-33.3); Mean Corpuscular Volume 94.1 fL (83.0-100.0); Mean Platelet Volume 10.3 fL (9.4-12.4); Monocytes # 0.3 K/mcL (0.0-1.3); Monocytes % 8.5 %; Neutrophils # 2.2 K/mcL (1.6-8.9); Red Blood Count 3.24 M/mcL (3.82-4.97); Red Cell Distribution Width 14.1 % (11.5-14.5); Segmented Neutrophils % 62.3 %
[2017-06-08 04:26] LABS: INR 1.6; Prothrombin Time 17.1 Seconds (9.4-12.1)
[2017-06-08 04:28] LABS: Platelet Count 87 K/mcL (140-400)
[2017-06-08 04:43] LABS: Calcium 8.9 mg/dL (8.6-10.8); Phosphorous 3.7 mg/dL (2.3-4.7); Potassium 3.7 mEq/L (3.5-4.5)
[2017-06-08 07:10] VITALS: BP 116/72
[2017-06-08] MEDS: Budesonide/Formoterol 160/4.5 MDI IH SCH (07:41)
[2017-06-08] MEDS: Tiotropium 18 MCG inhalation IH SCH (07:42)
[2017-06-08] MEDS: Aspirin 81 MG TAB.CHEW PO SCH (09:18)
[2017-06-08] MEDS: Sennosides/Docusate Sodium TABLET PO SCH (09:18)
[2017-06-08] MEDS: Spironolactone 25 MG TABLET PO SCH (09:18)
[2017-06-08] MEDS: Furosemide 40 MG/4 ML VIAL IVP SCH (09:19)
--- NOTE | 2017-06-08 13:19 | Discharge Summary ---
Date of Encounter: 06/08/17 Time of Encounter: 13:16 - Discharge Diagnosis (1) Ventral hernia without obstruction or gangrene Priority: Primary Status: Chronic (2) Diastolic CHF, chronic Priority: Secondary Status: Acute Comments: acute on chronic CHF exacerbation (3) Hypertension Priority: Secondary Status: Chronic Qualifiers: Hypertension type: essential hypertension Qualified Code(s): I10 - Essential (primary) hypertension (4) Cirrhosis Priority: Secondary Status: Chronic Qualifiers: Hepatic cirrhosis type: unspecified hepatic cirrhosis Ascites presence: with ascites Qualified Code(s): K74.60 - Unspecified cirrhosis of liver (5) Hypothyroid Priority: Secondary Status: Chronic Qualifiers: Hypothyroidism type: unspecified Qualified Code(s): E03.9 - Hypothyroidism , unspecified (6) CAD (coronary artery disease) Priority: Secondary Status: Acute Qualifiers: Coronary Disease-Associated Artery/Lesion type: [place] artery [place] vs. transplanted heart: [place] heart Associated angina: angina presence unspecified Qualified Code(s): I25.10 - Atherosclerotic heart disease of [place] coronary artery without angina pectoris (7) Afib Priority: Secondary Status: Chronic Qualifiers: Atrial fibrillation type: chronic Qualified Code(s): I48.2 - Chronic atrial fibrillation (8) Constipation Priority: Secondary Status: Chronic Qualifiers: Constipation type: unspecified constipation type Qualified Code(s): K59.00 - Constipation, unspecified (9) UTI (urinary tract infection) Priority: Secondary Status: Acute Qualifiers: Urinary tract infection type: site unspecified Hematuria presence: without hematuria Qualified Code(s): N39.0 - Urinary tract infection, site not specified (10) CHF exacerbation Priority: Secondary Status: Acute Qualifiers: Congestive heart failure type: diastolic Qualified Code(s): I50.33 - Acute on chronic diastolic (congestive) heart failure - Discharge Medications Prescriptions: Amoxicillin 875 mg PO BID #9 tablet Sennosides/Docusate Sodium [Senna Plus] 2 each PO BID #30 tab Home Medications: ARIPiprazole [Abilify] 5 mg PO HS 10/21/15 [History] Albuterol Sulfate [Albuterol Inhaler] 1 puff IH Q4HR 10/21/15 [History] Atenolol 50 mg PO DAILY 10/21/15 [History] Ferrous Sulfate [Iron] 650 mg PO HS 10/21/15 [History] Fluticasone Propionate [Flovent Hfa] 110 mcg IH BID 10/21/15 [History] Furosemide [Lasix] 40 mg PO BID 10/21/15 [History] Loratadine [Claritin] 10 mg PO HS 10/21/15 [History] Montelukast Sodium [Singulair] 5 mg PO HS 10/21/15 [History] Simvastatin [Zocor] 20 mg PO QPM 10/21/15 [History] Aspirin 81 mg PO DAILY #90 tab.chew 10/23/15 [Rx] Potassium Chloride [K-Tab ER] 10 meq PO DAILY 12/06/15 [History] traZODone [TraZODone] 50 mg PO HS 12/06/15 [History] Budesonide/Formoterol 160/4.5 [Symbicort 160/4.5] 2 puff IH BIDR 01/13/17 [ History] Escitalopram [Lexapro] 20 mg PO DAILY 01/13/17 [History] Oxygen 3 l NS CONT 01/13/17 [History] Warfarin [Coumadin] 7 mg PO DAILY 01/13/17 [History] Cholecalciferol (D-3) [Vitamin D] 1,000 unit PO DAILY 04/29/17 [History] Albuterol Neb [Proventil Neb] 2.5 mg IH Q4HR 06/04/17 [History] Ferrous Sulfate [Iron] 325 mg PO QAM 06/04/17 [History] Levothyroxine [Synthroid] 112 mcg PO 0630 06/04/17 [History] Tiotropium [Spiriva] 1 cap IH DAILY 06/04/17 [History] Amoxicillin 875 mg PO BID #9 tablet 06/08/17 [Rx] Sennosides/Docusate Sodium [Senna Plus] 2 each PO BID #30 tab 06/08/17 [Rx] Allergies/Adverse Reactions: 3 Allergy/AdvReac Type Severity Reaction Status Date / Time morphine Allergy Anaphylaxis Verified 04/29/17 14:08 ranolazine [From Ranexa] Allergy Diarrhea Verified 04/29/17 14:08 etomidate [From Amidate] AdvReac Anaphylaxis Verified 04/29/17 14:08 iodine AdvReac Rash Verified 04/29/17 14:08 povidone-iodine AdvReac Rash Verified 04/29/17 14:08 [From Betadine] soap [From Betadine] AdvReac Rash Verified 04/29/17 14:08 Date of admission: 06/04/17 18:53 Primary care physician: Ace Dalton DO Consults: 06/05/17 09:14 Consult to [place] [CONS] Routine Reason for SW Consult: potential discharge planning Discharging clinician: Jennifer Moran Anticipated date of discharge: 06/08/17 - Patient Status Disposition: Home Health Service Condition: Good Functional capacity at discharge: uses cane/walker Overall status at discharge: patient is back to baseline - Discharge Instructions Follow Up With: Katina Malloy MD [Partnered Physician] - (June 24 at 1:50 pm) Ace Dalton DO [Primary Care Provider] - Forms: ED Satisfaction Letter, Work/School Release Additional Instructions: Please follow up with your primary care physician within five days after your discharge from the hospital Please follow up with cardiology and surgery within one to two weeks after your discharge from the hospital. Please continue oral antibiotics as prescribed for your urinary tract infection. Senna plus has been added to your home medications for constipation. Resume all your home medications as prescribed by your primary care physician. Please check your INR weekly until it is within therapeutic range and inform your primary care physician of your INR levels. - Diet and Activity Activity: as per physical therapy, wear oxygen at all times, wear oxygen at night Diet: low salt diet Hospital course: Ms. Muñoz is a 82 year old female with PMH of Afib on anticoagulation, COPD on LTOT, CAD, CHF who was admitted for severe abd pain secondary to ventral hernia. She was also found to be in CHF exacerbation and have a UTI. She was started on supportive care for abd pain with surgical consultation and on IV diuretics and IV abx. Her pain improved with supportive care and given her cardiac history she was deemed to be high risk for surgery due to which patient refused surgical intervention at this time. She states her pain is resolved. She was noted to be severely constipated and said she felt significant relief in her abd pain after receiving laxative support. She will be discharged to home with laxatives. Her IV diuresis was continued with improvement in her symptoms. her iv abx are changed to po depending on urine culture sensitivities. Her inr is subtherapeutic and patient is educated about close follow up to monitor her INR. Pt was seen by physical therapy and will be going home with home health. At this time patient is hemodynamically stable and back to baseline respiratory status. She will be discharged with diuretics and po abxx. She is to follow up with pcp, surgery, cardiology, and get her INR checked weekly. Patient and daughter (present at bedside) demonstrate understanding of her diagnosis and agree with the discharge care and plan. - Time Spent with Patient Total time spent providing and/or coordinating discharge services: Greater than 30 minutes - Constitutional Vitals: Temp Pulse Resp BP Pulse Ox 97.1 F L 64 16 116/72 96 06/08/17 07:10 06/08/17 07:10 06/08/17 11:44 06/08/17 07:10 06/08/17 11:44 General appearance: Present: cooperative, A&O X 3, morbidly obese, pleasant, no acute distress, answers questions appropriately - Head Head exam: Present: atraumatic, normocephalic - Respiratory Respiratory exam: Present: CTAB. Absent: respiratory distress, wheezes - Cardiovascular Cardiovascular exam: Present: RRR, +S1, +S2 - GI/Abdominal GI/Abdominal exam: Present: normal bowel sounds, soft. Absent: tenderness - Extremities Exam Extremities exam: Present: pedal edema, warm, radial pulses palpable and symmetrical. Absent: calf tenderness - Neurological Exam Neurological exam: Present: alert, oriented X3 - Psychiatric Psychiatric exam: Present: normal affect, normal mood
--- NOTE | 2017-06-08 13:30 | Physician Discharge Referral ---
Home Health/Hosp Referral Info Transfer to: Home Health Provider in Charge Post Discharge: PCP - Diagnosis (1) Ventral hernia without obstruction or gangrene Priority: Primary Status: Chronic (2) Diastolic CHF, chronic Priority: Secondary Status: Acute (3) Hypertension Priority: Secondary Status: Chronic (4) Cirrhosis Priority: Secondary Status: Chronic (5) Hypothyroid Priority: Secondary Status: Chronic (6) CAD (coronary artery disease) Priority: Secondary Status: Acute (7) Afib Priority: Secondary Status: Chronic (8) Constipation Priority: Secondary Status: Chronic (9) UTI (urinary tract infection) Priority: Secondary Status: Acute (10) CHF exacerbation Priority: Secondary Status: Acute - Respiratory Orders Smoking Cessation: Smoking cessation has been advised. For more information, call the [place] Tobacco Quit Line at 2-817-SVEI-NOW. - Services Needed Following services are medically necessary services: Nursing, Home Health Aide, Physical Therapy, Occupational Therapy - Transfer Medications Prescriptions: Amoxicillin 875 mg PO BID #9 tablet Sennosides/Docusate Sodium [Senna Plus] 2 each PO BID #30 tab Home Medications: ARIPiprazole [Abilify] 5 mg PO HS 10/21/15 [History] Albuterol Sulfate [Albuterol Inhaler] 1 puff IH Q4HR 10/21/15 [History] Atenolol 50 mg PO DAILY 10/21/15 [History] Ferrous Sulfate [Iron] 650 mg PO HS 10/21/15 [History] Fluticasone Propionate [Flovent Hfa] 110 mcg IH BID 10/21/15 [History] Furosemide [Lasix] 40 mg PO BID 10/21/15 [History] Loratadine [Claritin] 10 mg PO HS 10/21/15 [History] Montelukast Sodium [Singulair] 5 mg PO HS 10/21/15 [History] Simvastatin [Zocor] 20 mg PO QPM 10/21/15 [History] Aspirin 81 mg PO DAILY #90 tab.chew 10/23/15 [Rx] Potassium Chloride [K-Tab ER] 10 meq PO DAILY 12/06/15 [History] traZODone [TraZODone] 50 mg PO HS 12/06/15 [History] Budesonide/Formoterol 160/4.5 [Symbicort 160/4.5] 2 puff IH BIDR 01/13/17 [ History] Escitalopram [Lexapro] 20 mg PO DAILY 01/13/17 [History] Oxygen 3 l NS CONT 01/13/17 [History] Warfarin [Coumadin] 7 mg PO DAILY 01/13/17 [History] Cholecalciferol (D-3) [Vitamin D] 1,000 unit PO DAILY 04/29/17 [History] Albuterol Neb [Proventil Neb] 2.5 mg IH Q4HR 06/04/17 [History] Ferrous Sulfate [Iron] 325 mg PO QAM 06/04/17 [History] Levothyroxine [Synthroid] 112 mcg PO 0630 06/04/17 [History] Tiotropium [Spiriva] 1 cap IH DAILY 06/04/17 [History] Amoxicillin 875 mg PO BID #9 tablet 06/08/17 [Rx] Sennosides/Docusate Sodium [Senna Plus] 2 each PO BID #30 tab 06/08/17 [Rx] Allergies/Adverse Reactions: 3 Allergy/AdvReac Type Severity Reaction Status Date / Time morphine Allergy Anaphylaxis Verified 04/29/17 14:08 ranolazine [From Ranexa] Allergy Diarrhea Verified 04/29/17 14:08 etomidate [From Amidate] AdvReac Anaphylaxis Verified 04/29/17 14:08 iodine AdvReac Rash Verified 04/29/17 14:08 povidone-iodine AdvReac Rash Verified 04/29/17 14:08 [From Betadine] soap [From Betadine] AdvReac Rash Verified 04/29/17 14:08 Certification: Further, I certify that my clinical findings support that this patient is homebound (i.e. absences from home require considerable and taxing effort and are for medical reasons or rastafarian services or infrequently or short duration when for other reasons) because: Homebound Reason: Patient requires assistance of a person or device to safely leave home Attestation: My signature below is to certify that this patient is under my care and that I, or nurse practitioner, or a physician's accounting manager assistant controller working with me, has a face-to -face encounter with this patient.
--- NOTE | 2017-06-08 20:50 | Electrocardiograph Report ---
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
== END 2017-06-08 15:22 | disposition home health service (06) | DRG 393 ==
LOC: EMEROO 08:29 → 3ANU 08:29
PROVIDERS: ADMIT Internal Medicine; ATTEND Internal Medicine

== ENCOUNTER 2017-10-05 16:57 | Inpatient (IN) ==
--- NOTE | 2017-10-05 17:42 | Emergency Department Note ---
Disposition Clinical Impression: Acute exacerbation of CHF (congestive heart failure) Qualifiers: Congestive heart failure type: unspecified Qualified Code(s): I50.9 - Heart failure, unspecified Dyspnea Qualifiers: Dyspnea type: unspecified Qualified Code(s): R06.00 - Dyspnea, unspecified Disposition: Admitted As Inpatient Condition: Fair Referrals: Ace Dalton DO [Primary Care Provider] - Forms: ED Satisfaction Letter General Adult HPI - General Chief complaint: ED Extremity Problem,Nontraumatic Stated complaint: BLE Swelling/Redness/MARCO Time Seen by Provider: 10/05/17 17:03 Source: patient Limitations: no limitations Nursing Notes Reviewed: Yes Vital Signs Reviewed: Yes - History of Present Illness HPI Narrative: 82-year-old female who reports 1 week of progressive bilateral lower extremity edema and shortness of breath with exertion. She reports she is no longer able to walk more than a couple feet without being significantly this. She has a past medical history of congestive heart failure and one week ago and called her floatlight powder mixer who had her increase her Lasix dosing due to worsening lower extremity edema. She has a past medical history of hypertension, congestive heart failure, coronary arterial disease, COPD. She is on 2L NC at all times at home. Pain Scale: 0 Improves with: nothing Worsens with: other (exertion) Associated symptoms: Reports: denies other symptoms Treatments Prior to Arrival: none - Related Data Home Medications Medication Instructions Recorded Confirmed ARIPiprazole [Abilify] 5 mg PO HS 10/21/15 06/04/17 Albuterol Sulfate [Albuterol 1 puff IH Q4HR 10/21/15 06/04/17 Inhaler] Atenolol 50 mg PO DAILY 10/21/15 06/04/17 Ferrous Sulfate [Iron] 650 mg PO HS 10/21/15 06/04/17 Fluticasone Propionate [Flovent 110 mcg IH BID 10/21/15 06/04/17 Hfa] Furosemide [Lasix] 40 mg PO BID 10/21/15 06/04/17 Loratadine [Claritin] 10 mg PO HS 10/21/15 06/04/17 Montelukast Sodium [Singulair] 5 mg PO HS 10/21/15 06/04/17 Simvastatin [Zocor] 20 mg PO QPM 10/21/15 06/04/17 Potassium Chloride [K-Tab ER] 10 meq PO DAILY 12/06/15 06/04/17 traZODone [TraZODone] 50 mg PO HS 12/06/15 06/04/17 Budesonide/Formoterol 160/4.5 2 puff IH BIDR 01/13/17 06/04/17 [Symbicort 160/4.5] Escitalopram [Lexapro] 20 mg PO DAILY 01/13/17 06/04/17 Oxygen 3 l NS CONT 01/13/17 06/04/17 Warfarin [Coumadin] 7 mg PO DAILY 01/13/17 06/04/17 Cholecalciferol (D-3) [Vitamin D] 1,000 unit PO DAILY 04/29/17 06/04/17 Albuterol Neb [Proventil Neb] 2.5 mg IH Q4HR 06/04/17 06/04/17 Ferrous Sulfate [Iron] 325 mg PO QAM 06/04/17 06/04/17 Levothyroxine [Synthroid] 112 mcg PO 0630 06/04/17 06/04/17 Tiotropium [Spiriva] 1 cap IH DAILY 06/04/17 06/04/17 Previous Rx's Medication Instructions Recorded Aspirin 81 mg PO DAILY #90 tab.chew 10/23/15 Amoxicillin 875 mg PO BID #9 tablet 06/08/17 Sennosides/Docusate Sodium [Senna 2 each PO BID #30 tab 06/08/17 Plus] Allergies Allergy/AdvReac Type Severity Reaction Status Date / Time morphine Allergy Anaphylaxis Verified 04/29/17 14:08 ranolazine [From Ranexa] Allergy Diarrhea Verified 04/29/17 14:08 etomidate [From Amidate] AdvReac Anaphylaxis Verified 04/29/17 14:08 iodine AdvReac Rash Verified 04/29/17 14:08 povidone-iodine AdvReac Rash Verified 04/29/17 14:08 [From Betadine] soap [From Betadine] AdvReac Rash Verified 04/29/17 14:08 All systems ED: reviewed and negative except as stated. Constitutional: Denies: fever ENT ED: Denies: throat pain Cardiovascular: Denies: chest pain Respiratory: Reports: cough, dyspnea Gastrointestinal: Denies: abdominal pain, nausea, vomiting Endocrine: Reports: fatigue Past Medical History - Past Medical History Medical history: Reports: arthritis, asthma, atrial fibrillation, cirrhosis, CHF , COPD, coronary artery disease, GERD, hyperlipidemia, hypertension, thyroid disease, other Surgical history: Reports: angioplasty/stent, cholecystectomy, herniorrhaphy, hysterectomy, vascular surgery Psychiatric history: Reports: anxiety, depression - Social History Smoking Status: Former smoker Smokeless Tobacco Status: No Alcohol use: Reports: none Drug use: Reports: none Physical Exam - General Limitations: no limitations General appearance: alert, in no apparent distress - Head Head exam: atraumatic - Eye Eye exam: Present: normal appearance, PERRL - ENT ENT exam: normal exam, normal oropharynx - Neck Neck exam: Present: normal inspection - Chest Chest inspection: Present: normal inspection - Respiratory Respiratory exam: Present: other (coarse lung sounds throughout. ) - Cardiovascular Cardiovascular exam: Present: regular rate, normal rhythm - Abdominal Exam Abdominal exam: Present: soft, Non-Tender - Extremities Exam Extremities exam: Present: pedal edema (bilateral 4+ pitting edema) - Neurological Exam Neurological exam: Present: alert, oriented X3 - Skin Skin exam: Present: warm, dry Course Course Narrative: Renal function is still adequate. Congestion seen on x-ray which correlated with exam. Will give 40mg of lasix for CHF exacerbation. Chanelle accepts Vital Signs Temperature 98.5 F 10/05/17 16:58 Pulse Rate 110 10/05/17 16:58 Respiratory Rate 18 10/05/17 16:58 Blood Pressure 118/71 10/05/17 16:58 O2 Sat by Pulse Oximetry 97 10/05/17 16:58 Temperature 98.5 F 10/05/17 16:58 Pulse Rate 62 10/05/17 18:16 Respiratory Rate 18 10/05/17 18:16 Blood Pressure 129/63 10/05/17 18:16 O2 Sat by Pulse Oximetry 94 10/05/17 18:16 Oxygen Delivery Oxygen Delivery Room Air Medical Decision Making - Medical Records Medical records reviewed: Yes I reviewed the patient's medical records. - Lab Data Lab results reviewed: Yes I reviewed the patient's lab results. Result diagrams: 10/05/17 17:44 10/05/17 17:44 Lab Results 10/05/17 10/05/17 10/05/17 Range/Units 17:44 17:44 17:44 WBC 3.7 L (4.3-11.1) K/mcL RBC 3.28 L (3.82-4.97) M/mcL Hgb 9.7 L (11.5-15.4) g/dL Hct 31.7 L (35.3-44.9) % MCV 96.6 (83.0-100.0) fL MCH 29.6 (28.0-33.3) pg MCHC 30.6 L (31.6-35.5) g/dL RDW 14.3 (11.5-14.5) % Plt Count 94 L (140-400) K/mcL MPV 9.9 (9.4-12.4) fL Immature Gran % 0.3 (0-4) % Seg Neutrophils % 59.6 % Lymphocytes % 27.5 % Monocytes % 10.2 % Eosinophils % 1.9 % Basophils % 0.5 % Neutrophils # 2.2 (1.6-8.9) K/mcL Lymphocytes # 1.0 (0.6-4.6) K/mcL Monocytes # 0.4 (0.0-1.3) K/mcL Eosinophils # 0.1 (0.0-0.6) K/mcL Basophils # 0.0 (0.0-0.2) K/mcL PT (9.4-12.1) Seconds INR Sodium 136 (136-145) mEq/L Potassium 3.3 L (3.5-5.1) mEq/L Chloride 95 L (98-107) mEq/L Carbon Dioxide 36 H (23-29) mEq/L BUN 21 (8-23) mg/dL Creatinine 0.99 (0.60-1.20) mg/dL Est GFR ( Amer) > 60 (> 60) Est GFR (Non-Af Amer) 54 L (> 60) BUN/Creatinine Ratio 21 (6-26) Glucose 95 (70-105) mg/dL Calculated Osmolality 285 (280-300) Calcium 8.8 (8.6-10.3) mg/dL Troponin I < 0.03 (< 0.04) ng/mL B-Natriuretic Peptide (Less than 100) pg/mL 10/05/17 10/05/17 Range/Units 17:44 17:44 WBC (4.3-11.1) K/mcL RBC (3.82-4.97) M/mcL Hgb (11.5-15.4) g/dL Hct (35.3-44.9) % MCV (83.0-100.0) fL MCH (28.0-33.3) pg MCHC (31.6-35.5) g/dL RDW (11.5-14.5) % Plt Count (140-400) K/mcL MPV (9.4-12.4) fL Immature Gran % (0-4) % Seg Neutrophils % % Lymphocytes % % Monocytes % % Eosinophils % % Basophils % % Neutrophils # (1.6-8.9) K/mcL Lymphocytes # (0.6-4.6) K/mcL Monocytes # (0.0-1.3) K/mcL Eosinophils # (0.0-0.6) K/mcL Basophils # (0.0-0.2) K/mcL PT 31.7 H (9.4-12.1) Seconds INR 2.9 Sodium (136-145) mEq/L Potassium (3.5-5.1) mEq/L Chloride (98-107) mEq/L Carbon Dioxide (23-29) mEq/L BUN (8-23) mg/dL Creatinine (0.60-1.20) mg/dL Est GFR ( Amer) (> 60) Est GFR (Non-Af Amer) (> 60) BUN/Creatinine Ratio (6-26) Glucose (70-105) mg/dL Calculated Osmolality (280-300) Calcium (8.6-10.3) mg/dL Troponin I (< 0.04) ng/mL B-Natriuretic Peptide 793 H (Less than 100) pg/mL - Radiology Data Radiology results reviewed: Yes I reviewed the patient's radiology results. - EKG Data EKG #1 EKG attestation: Yes I reviewed and interpreted this EKG. Rate: normal Rhythm: A.Fib [place]/QRS: right axis deviation When compared to previous EKG there are: no significant changes Interpretation: other (HR 71.) Attestation Statement - Attestation Attestation: I examined this patient and my medical decision-making was reviewed with the Resident Physician. I agree with the documented findings, disposition and treatment plan as described except to the extent set forth below. Patient presents to the ED with a chief complaint leg swelling and shortness of breath. Onset 2 weeks ago. The swelling is gotten worse. She is double her Lasix dose for several days but it is not improved. Patient states she walked about 4 feet without getting short of breath. She called Dr. Okeefe's office who recommended her to come to the ED. On examination she has 3+ pitting edema bilaterally. Rales at bases. She is in no respiratory distress. She is satting 96% on her home oxygen. Plan. Cardiac workup. Likely admission for diuresis.
[2017-10-05 17:56] LABS: Basophils % 0.5 %; Eosinophils # 0.1 K/mcL (0.0-0.6); Eosinophils % 1.9 %; Hematocrit 31.7 % (35.3-44.9); Hemoglobin 9.7 g/dL (11.5-15.4); Immature Granulocytes % 0.3 % (0-4); Lymphocytes % 27.5 %; Mean Corpuscular HGB Conc 30.6 g/dL (31.6-35.5); Mean Corpuscular Hemoglobin 29.6 pg (28.0-33.3); Mean Corpuscular Volume 96.6 fL (83.0-100.0); Mean Platelet Volume 9.9 fL (9.4-12.4); Monocytes # 0.4 K/mcL (0.0-1.3); Monocytes % 10.2 %; Neutrophils # 2.2 K/mcL (1.6-8.9); Platelet Count 94 K/mcL (140-400); Red Blood Count 3.28 M/mcL (3.82-4.97); Red Cell Distribution Width 14.3 % (11.5-14.5); Segmented Neutrophils % 59.6 %
[2017-10-05 17:57] LABS: INR 2.9; Prothrombin Time 31.7 Seconds (9.4-12.1)
[2017-10-05 18:05] LABS: BUN/Creatinine Ratio 21 (6-26); Blood Urea Nitrogen 21 mg/dL (8-23); Calcium 8.8 mg/dL (8.6-10.3); Carbon Dioxide 36 mEq/L (23-29); Chloride 95 mEq/L (98-107); Glucose 95 mg/dL (70-105); Osmolality,Calculated 285 (280-300); Potassium 3.3 mEq/L (3.5-5.1); Sodium 136 mEq/L (136-145); eGFR For African Americans > 60 (> 60); eGFR For Non-African Americans 54 (> 60)
[2017-10-05] MEDS ORDERED: Furosemide 40 MG/4 ML VIAL IVP ONE (18:14)
[2017-10-05] MEDS ORDERED: Acetaminophen 325 MG TABLET PO PRN (20:43)
[2017-10-05] MEDS ORDERED: Ondansetron ODT 4 MG TAB.RAPDIS SL PRN (20:43)
--- NOTE | 2017-10-05 21:02 | Internal Med History&Physical ---
<Alexandre Jose - Last Filed: 10/06/17 02:50> Date of Encounter: 10/06/17 Time of Encounter: 20:30 Assessment and Plan (1) Diastolic CHF, chronic Current visit: No Status: Acute BNP elevated to 793 this afternoon Most recent echocardiogram done in May 2017 demonstrating normal LVEF, but MVR patient saturating well on 3 L of oxygen by nasal cannula and is able to complete full sentences without any apparent respiratory distress will give patient 40mg IV Lasix BID patient is home 02 dependent at 2 L by nasal cannula; will continue to provide nasal 02 as needed to maintain saturations above 90% patient placed on cardiac and fluid restriction diet (not to exceed 1500 mLs per day) recommend reassessment of patient in a.m. with consideration of PT/OT due to recent fatigue/SOA with walking short distances (2) CAD (coronary artery disease) Current visit: No Status: Acute Patient states had stents placed in 2004 no chest pains or other ACS equivalent symptoms; EKG shows no signs of ACS troponin in ED was negative Qualifiers: Coronary Disease-Associated Artery/Lesion type: [place] artery [place] vs. transplanted heart: [place] heart Associated angina: angina presence unspecified Qualified Code(s): I25.10 - Atherosclerotic heart disease of [place] coronary artery without angina pectoris (3) Afib Current visit: No Status: Chronic Chronic, stable, and without RVR at this time; patient anticoagulated on warfarin Qualifiers: Atrial fibrillation type: chronic Qualified Code(s): I48.2 - Chronic atrial fibrillation (4) Hypertension Current visit: No Status: Chronic Patient presently normotensive and borderline bradycardic will hold atenolol for now and consider reinstating in the a.m. Qualifiers: Hypertension type: essential hypertension Qualified Code(s): I10 - Essential (primary) hypertension (5) Anemia Current visit: No Status: Chronic Hemoglobin approximate 9 g on lab this afternoon will recheck CBC in AM Qualifiers: Anemia type: other cause Other causes of anemia: other cause, not classified Qualified Code(s): D64.89 - Other specified anemias (6) Hypothyroid Current visit: No Status: Chronic Continue Synthroid Qualifiers: Hypothyroidism type: unspecified Qualified Code(s): E03.9 - Hypothyroidism , unspecified (7) DVT prophylaxis Current visit: Yes Status: Acute Currently anticoagulated on warfarin since patient is on fall precautions, will apply SCDs Internal Medicine - H&P: HPI Chief complaint: Shortness of air, leg swelling, fatigability Admitted From: Emergency Dept Plans for Post Hospital Care: Home History of present illness: Ms. Muñoz is a 82 year old female admitted via ED for 2 week history of increasing shortness of air, exertional fatigue/lightheadedness, and increasing pedal edema (biaterally). Known history of CHF/CAD; patient has contacted her hand thermal cutter who recommended doubling her routine Lasix (40mg TID from usual BID ) with no relief of symptoms. Patient taken to ED by her daughter due to concerns of these ongoing symptoms. Patient denies any fevers, chills, sweats, chest pain, cough, dyspnea at rest, nausea, vomiting, diarrhea, dysuria, or leg pain. Has had to incline head to sleep at night. Past Med Surg Social Fam HX - Past Medical History Medical history: arthritis, asthma, atrial fibrillation, cirrhosis, CHF, COPD, coronary artery disease, GERD, hyperlipidemia, hypertension, thyroid disease, other Psychiatric history: anxiety, depression - Past Surgical History Surgical History: angioplasty/stent, cholecystectomy, herniorrhaphy, hysterectomy, vascular surgery - Social History Smoking Status: Former smoker Smokeless Tobacco Status: No Alcohol use: none Drug use: none - Family History Mother Name: Nadege Maynard Family Member Ethnicity: Non- Living Status: Cause of : kidney failure Hx Family Cardiac Disorders: No Hx Family Respiratory Disorders: No Hx Family Cancer: Yes Hx Family GI Disorders: No Hx Family Genitourinary Disorders: Yes Hx Family Endocrine Disorder: Yes Hx Family Neuromuscular Disorders: No Hx Family Neurologic Disorders: Yes Hx Family HEENT Disorders: No Hx Family Autoimmune Disorders: No Internal Medicine - H&P: Meds ARIPiprazole [Abilify] 5 mg PO HS 10/21/15 [History] Albuterol Sulfate [Albuterol Inhaler] 2 puff IH Q4HR PRN 10/21/15 [History] Ferrous Sulfate [Iron] 650 mg PO HS 10/21/15 [History] Furosemide [Lasix] 40 mg PO TID 10/21/15 [History] Loratadine [Claritin] 10 mg PO HS 10/21/15 [History] Simvastatin [Zocor] 20 mg PO QPM 01/31/16 [History] Aspirin 81 mg PO DAILY #90 tab.chew 10/23/15 [Rx] traZODone [TraZODone] 50 mg PO HS 12/06/15 [History] Budesonide/Formoterol 160/4.5 [Symbicort 160/4.5] 2 puff IH BIDR 01/13/17 [ History] Escitalopram [Lexapro] 20 mg PO DAILY 01/13/17 [History] Oxygen 3 l NS CONT 01/13/17 [History] Cholecalciferol (D-3) [Vitamin D] 1,000 unit PO BID 04/29/17 [History] Albuterol Neb [Proventil Neb] 2.5 mg IH TID 06/04/17 [History] Ferrous Sulfate [Iron] 325 mg PO QAM 06/04/17 [History] Levothyroxine [Synthroid] 112 mcg PO 0630 06/04/17 [History] Tiotropium [Spiriva] 18 mcg IH DAILY 06/04/17 [History] Atenolol [Tenormin] 50 mg PO DAILY 10/05/17 [History] Cholestyramine/Aspartame [Cholestyramine Light Packet] 4 gm PO DAILY 10/05/17 [ History] Mometasone Furoate [Nasonex] 1 spray NS DAILY 10/05/17 [History] Montelukast [Singulair] 10 mg PO HS 10/05/17 [History] Sennosides/Docusate Sodium [Senna Plus] 1 each PO BID PRN 10/05/17 [History] Warfarin Sodium [Coumadin] 6 mg PO DAILY 10/05/17 [History] 3 Allergy/AdvReac Type Severity Reaction Status Date / Time morphine Allergy Anaphylaxis Verified 04/29/17 14:08 ranolazine [From Ranexa] Allergy Diarrhea Verified 04/29/17 14:08 etomidate [From Amidate] AdvReac Anaphylaxis Verified 04/29/17 14:08 iodine AdvReac Rash Verified 04/29/17 14:08 povidone-iodine AdvReac Rash Verified 04/29/17 14:08 [From Betadine] soap [From Betadine] AdvReac Rash Verified 04/29/17 14:08 All Systems PM: A 10-system review of systems was performed and is negative for pertinent findings except as documented above in the HPI. Review of systems: As per HPI - Constitutional Vitals: Temp Pulse Resp BP Pulse Ox 98 F 59 20 91/53 96 10/05/17 20:01 10/05/17 20:01 10/05/17 20:01 10/05/17 20:01 10/05/17 20:01 Exam: CONSTITUTIONAL: Alert and oriented X3, well-nourished, well appearing, in no apparent distress HEAD: Normocephalic; atraumatic. EYES: PERRL, no scleral icterus, no drainage, no conjunctival injection NOSE: The nose is normal in appearance without rhinorrhea Oropharynx: pink/moist, no tonsillar edema/erythema/exudates RESP: NRD without use of accessory musculature, CTA b/l with no wheezes; mild crackles at bases CARD: Regular rhythm, without murmurs, rubs, or gallop ABD: grossly normal, soft, non-tender, no distention, moderate-sized non-tender periumbilical hernia noted SKIN: normal overall appearance, no pallor/diaphoresis,mottling,jaundice, cyanosis EXT: DP pulses 2+ and symmetrical, symmetrical 3+ pitting edema to lower extremities with notable rubor to anterior tibial region; no other color change or lymphangitic streaking seen, or other skin abnormalities noted on exam PSYCH: appropriate mood/affect Internal Med - H&P Results - Labs CBC & Chem 7: 10/05/17 17:44 10/05/17 17:44 - EKG Data -: EKG Interpreted by Myself - EKG Data Prior EKG available for review: yes When compared to previous EKG: there is no significant change EKG comments: A-fib without RVR 10/05/17 21:52 - VTE Reasons for not Prescribing Prophylaxis: Medical contraindication <Jennifer Moran - Last Filed: 10/06/17 04:09> Date of Encounter: 10/05/17 Internal Medicine - H&P: HPI History of present illness: Ms. Muñoz is a 82 year old female All Systems PM: A 10-system review of systems was performed and is negative for pertinent findings except as documented above in the HPI. - Constitutional Vitals: Temp Pulse Resp BP Pulse Ox 97.4 F L 59 18 99/65 96 10/05/17 22:58 10/05/17 22:58 10/05/17 22:58 10/05/17 22:58 10/05/17 22:58 Internal Med - H&P Results - Labs CBC & Chem 7: 10/05/17 17:44 10/05/17 17:44 - Attending Attestation Patient is an 82y/o female admitted for acute respiratory distress secondary to CHF decompensation. Patient independently seen and examined at bedside. Patient resting in bed and reported of improvement in her symptoms since arrival to the hospital. She received IV lasix in the ER, will continue Lasix 40mg IV BID Monitor daily weights, intake/output, and fluid restriction diet history of Afib, rate controlled with BB, anticoagulated with Coumadin, will continue. Monitor INR, goal INR: 2-3 obtain PT/OT when able labs and vitals reviewed Case discussed with resident physician, Dr. Alexandre Jose, I agree with his documented findings, assessment, and plan except as listed above.
[2017-10-05] MEDS ORDERED: Sennosides/Docusate Sodium TABLET PO PRN (23:06)
[2017-10-05] MEDS: Nystatin Cream 15 GM TUBE TP SCH (23:10)
[2017-10-05] MEDS: traZODone 50 MG TABLET PO SCH (23:10)
[2017-10-05] MEDS ORDERED: NON-FORMULARY MEDICATION 1 EACH EACH (Oxygen [Oxygen] 3 L) NS SCH (23:15)
[2017-10-05] MEDS: Budesonide/Formoterol 160/4.5 MDI IH SCH (23:21)
[2017-10-06] MEDS: Albuterol 2.5 MG/3 ML NEBULIZER IH SCH ×2 (03:13→10:21)
[2017-10-06 05:47] LABS: Basophils % 0.4 %; Hematocrit 30.3 % (35.3-44.9); Hemoglobin 9.2 g/dL (11.5-15.4); Mean Corpuscular HGB Conc 30.4 g/dL (31.6-35.5); Red Cell Distribution Width 14.3 % (11.5-14.5)
[2017-10-06 05:49] LABS: Eosinophils # 0.1 K/mcL (0.0-0.6); Eosinophils % 2.9 %; Immature Granulocytes % 0.4 % (0-4); Immature Platelets 3.3 % (1.1-6.1); Lymphocytes % 37.3 %; Mean Corpuscular Hemoglobin 29.5 pg (28.0-33.3); Mean Corpuscular Volume 97.1 fL (83.0-100.0); Mean Platelet Volume 10.1 fL (9.4-12.4); Monocytes # 0.3 K/mcL (0.0-1.3); Monocytes % 10.5 %; Red Blood Count 3.12 M/mcL (3.82-4.97); Segmented Neutrophils % 48.5 %
[2017-10-06 05:50] LABS: Neutrophils # 1.4 K/mcL (1.6-8.9)
[2017-10-06 05:51] LABS: Platelet Count 82 K/mcL (140-400)
[2017-10-06 05:54] LABS: INR 2.7
[2017-10-06 06:14] LABS: BUN/Creatinine Ratio 23 (6-26); Blood Urea Nitrogen 21 mg/dL (8-23); Calcium 8.6 mg/dL (8.6-10.3); Carbon Dioxide 38 mEq/L (23-29); Chloride 96 mEq/L (98-107); Glucose 90 mg/dL (70-105); Osmolality,Calculated 297 (280-300); Phosphorous 3.9 mg/dL (2.7-4.5); Potassium 3.4 mEq/L (3.5-5.1); Sodium 142 mEq/L (136-145); eGFR For African Americans > 60 (> 60); eGFR For Non-African Americans > 60 (> 60)
[2017-10-06] MEDS ORDERED: Furosemide 40 MG/4 ML VIAL IVP SCH (08:00)
[2017-10-06] MEDS: Cholestyramine 4 GM POWD.PACK PO SCH (08:56)
[2017-10-06] MEDS: Furosemide 40 MG/4 ML VIAL IVP SCH ×2 (08:57→18:12)
[2017-10-06] MEDS: Cholecalciferol (D-3) 1,000 UNIT TABLET PO SCH (08:57)
[2017-10-06] MEDS: Nystatin Cream 15 GM TUBE TP SCH ×3 (08:59→20:37)
[2017-10-06] MEDS: Aspirin 81 MG TAB.CHEW PO SCH (09:00)
[2017-10-06] MEDS ORDERED: Furosemide 40 MG TABLET PO SCH (09:00)
[2017-10-06] MEDS: Tiotropium 18 MCG inhalation IH SCH (10:17)
[2017-10-06] MEDS: Budesonide/Formoterol 160/4.5 MDI IH SCH ×2 (10:17→22:17)
--- NOTE | 2017-10-06 10:20 | Internal Med Progress Note ---
Date of Encounter: 10/06/17 Time of Encounter: 10:17 - Assessment and plan (1) CHF (congestive heart failure) Current Visit: Yes Status: Acute Assessment and plan: Admitted with exertional dyspnea and pedal edema, noted to have elevated BNP. Continue IV Lasix along with fluid restriction and urine output monitoring. Continue beta shaka and telemetry monitoring. Patient is noted to have some erythema and tenderness over bilateral anterior legs along with significant edema. Suspect mild cellulitis, start IV Rocephin. Physical and occupational therapy evaluation. Echocardiogram from May 2017 shows preserved ejection fraction, moderate biatrial dilation, indeterminate diastolic dysfunction, mild right ventricular dilation, mild to moderate aortic stenosis and tricuspid regurgitation, severe pulmonary hypertension. Qualifiers: Congestive heart failure type: diastolic Congestive heart failure chronicity: acute on chronic Qualified Code(s): I50.33 - Acute on chronic diastolic (congestive) heart failure (2) COPD (chronic obstructive pulmonary disease) Current Visit: Yes Status: Chronic Assessment and plan: Noted acute exacerbation. Continue when necessary bronchodilators, Spiriva, inhaled corticosteroids. Qualifiers: COPD type: unspecified COPD Qualified Code(s): J44.9 - Chronic obstructive pulmonary disease, unspecified (3) Anxiety and depression Current Visit: Yes Status: Chronic (4) Pancytopenia Current Visit: Yes Status: Chronic Assessment and plan: Likely related to underlying cirrhosis. Continue to monitor closely. Chronic. (5) Anemia Current Visit: Yes Status: Chronic Qualifiers: Anemia type: other cause Other causes of anemia: other cause, not classified Qualified Code(s): D64.89 - Other specified anemias (6) Afib Current Visit: Yes Status: Chronic Assessment and plan: Currently rate controlled. Continue telemetry monitoring, beta shaka and long -term anticoagulation with Coumadin. INR noted to be therapeutic. Qualifiers: Atrial fibrillation type: chronic Qualified Code(s): I48.2 - Chronic atrial fibrillation (7) Hypertension Current Visit: Yes Status: Chronic Qualifiers: Hypertension type: essential hypertension Qualified Code(s): I10 - Essential (primary) hypertension (8) Cirrhosis Current Visit: Yes Status: Chronic Qualifiers: Hepatic cirrhosis type: unspecified hepatic cirrhosis Ascites presence: with ascites Qualified Code(s): K74.60 - Unspecified cirrhosis of liver (9) Hypothyroid Current Visit: Yes Status: Chronic Assessment and plan: Continue levothyroxine. Qualifiers: Hypothyroidism type: unspecified Qualified Code(s): E03.9 - Hypothyroidism , unspecified (10) CAD (coronary artery disease) Current Visit: Yes Status: Acute Assessment and plan: Continue aspirin, statin, beta shaka. Telemetry monitoring. Qualifiers: Coronary Disease-Associated Artery/Lesion type: [place] artery [place] vs. transplanted heart: [place] heart Associated angina: angina presence unspecified Qualified Code(s): I25.10 - Atherosclerotic heart disease of [place] coronary artery without angina pectoris - Subjective Interval history: Feels better today; improving shortness of breath; no fever/chills, cough; does have worsening leg swelling and redness; - Constitutional Vitals: Temp Pulse Resp BP Pulse Ox 97.4 F L 58 24 102/54 96 10/06/17 04:56 10/06/17 04:56 10/06/17 04:56 10/06/17 04:56 10/06/17 04:56 General appearance: Present: A&O X 3, answers questions appropriately - Respiratory Respiratory exam: Present: CTAB (bibasal crackles), rales. Absent: accessory muscle use, rhonchi, wheezes - Cardiovascular Cardiovascular exam: Present: irregular rhythm, +S1, +S2, systolic murmur. Absent: diastolic murmur, gallop, rubs - GI/Abdominal GI/Abdominal exam: Present: normal bowel sounds, soft, no peritoneal signs. Absent: distended, tenderness - Extremities Exam Extremities exam: Present: pedal edema (3+ pitting pedal edema, erythema B/L anterior legs diffusely), warm, radial pulses palpable and symmetrical. Absent : calf tenderness, cyanotic Internal Medicine: Result - Labs CBC & Chem 7: 10/06/17 05:08 10/06/17 05:08 Labs: Short CBC 10/06/17 Range/Units 05:08 WBC 2.8 L (4.3-11.1) K/mcL Hgb 9.2 L (11.5-15.4) g/dL Hct 30.3 L (35.3-44.9) % Plt Count 82 L (140-400) K/mcL Neutrophils # 1.4 L (1.6-8.9) K/mcL BMP 10/06/17 05:08 Sodium 142 Potassium 3.4 L Chloride 96 L Carbon Dioxide 38 H BUN 21 Creatinine 0.90 Glucose 90 Calcium 8.6 - ABG Interpretation ABG results: PT/INR, D-dimer PT 30.0 Seconds (9.4-12.1) H 10/06/17 05:08 - VTE Reasons for not Prescribing Prophylaxis: Medical contraindication Documentation of Mechanical Device: Intermittent pneumatic compression device Consult Discharge Plan - Plan Referrals: Ace Dalton DO [Primary Care Provider] - 10/13/17 1:00 pm (Please follow up as scehdule with Miranda Go)
--- NOTE | 2017-10-06 11:13 | Electrocardiograph Report ---
[address] [place], [place] [address] Test Date: 2017-10-05 Pat Name: Vickie Muñoz Department: 102 Room: 2A25 Gender: F Grid Operator: : [id number] Requested By: Louie Viramontes Order Number: [id number] Reading MD: Sajan Goncalves MD Measurements Intervals [place] Rate: 61 P: CT: 0 QRS: 111 QRSD: 125 T: -21 QT: 453 QTc: 457 Interpretive Statements ATRIAL FIBRILLATION MARKED RIGHT AXIS DEVIATION RIGHT BUNDLE BRANCH BLOCK Electronically Signed On 10-06-2017 11:11:23 EST by Sajan Goncalves MD
[2017-10-06] MEDS ORDERED: Albuterol 2.5 MG/3 ML NEBULIZER IH PRN (12:01)
[2017-10-06] MEDS: cefTRIAXone 1,000 MG in Water for inj. (sterile) 20 ML 10 ML IVP SCH (14:28)
[2017-10-06] MEDS: Fluticasone Propionate Nasal 50 MCG/SPRAY BOTTLE NS SCH (14:29)
[2017-10-06] MEDS ORDERED: Warfarin perPT PO PRN (18:00)
[2017-10-06] MEDS ORDERED: *HR* Warfarin 5 MG TABLET PO ONE (18:00)
[2017-10-06] MEDS ORDERED: *HR* Warfarin 3 MG TABLET PO SCH ×2 (18:00)
[2017-10-06] MEDS: ARIPiprazole 2 MG TABLET PO SCH (20:33)
[2017-10-06] MEDS: Loratadine 10 MG TABLET PO SCH (20:34)
[2017-10-06] MEDS: traZODone 50 MG TABLET PO SCH (20:34)
[2017-10-07 06:46] LABS: INR 2.5; Prothrombin Time 27.2 Seconds (9.4-12.1)
[2017-10-07 06:53] LABS: BUN/Creatinine Ratio 22 (6-26); Blood Urea Nitrogen 22 mg/dL (8-23); Calcium 8.5 mg/dL (8.6-10.3); Carbon Dioxide 38 mEq/L (23-29); Chloride 97 mEq/L (98-107); Glucose 109 mg/dL (70-105); Osmolality,Calculated 292 (280-300); Potassium 3.6 mEq/L (3.5-5.1); Sodium 139 mEq/L (136-145); eGFR For African Americans > 60 (> 60); eGFR For Non-African Americans 55 (> 60)
[2017-10-07] MEDS: Aspirin 81 MG TAB.CHEW PO SCH (09:07)
[2017-10-07] MEDS: Cholestyramine 4 GM POWD.PACK PO SCH (09:08)
[2017-10-07] MEDS: Furosemide 40 MG/4 ML VIAL IVP SCH ×2 (09:08→17:22)
[2017-10-07] MEDS: Cholecalciferol (D-3) 1,000 UNIT TABLET PO SCH (09:08)
[2017-10-07] MEDS: Nystatin Cream 15 GM TUBE TP SCH ×3 (09:11→21:31)
[2017-10-07] MEDS: cefTRIAXone 1,000 MG in Water for inj. (sterile) 20 ML 10 ML IVP SCH (09:16)
--- NOTE | 2017-10-07 09:57 | Internal Med Progress Note ---
Date of Encounter: 10/07/17 Time of Encounter: 09:54 - Assessment and plan (1) CHF (congestive heart failure) Current Visit: Yes Status: Acute Assessment and plan: Likely an exacerbation of diastolic heart failure. She had an elevated BNP on admission. Continue with IV Lasix. She is on 40 mg IV twice a day. Continue with fluid restrictions. Continue beta shaka and telemetry monitoring. Echocardiogram from May 2017 shows preserved ejection fraction, moderate biatrial dilation, indeterminate diastolic dysfunction, mild right ventricular dilation, mild to moderate aortic stenosis and tricuspid regurgitation, severe pulmonary hypertension. Qualifiers: Congestive heart failure type: diastolic Congestive heart failure chronicity: acute on chronic Qualified Code(s): I50.33 - Acute on chronic diastolic (congestive) heart failure (2) Cellulitis Current Visit: Yes Status: Acute Assessment and plan: Continue ceftriaxone. Qualifiers: Site of cellulitis: extremity Site of cellulitis of extremity: lower extremity Laterality: unspecified laterality Qualified Code(s): L03.119 - Cellulitis of unspecified part of limb (3) Afib Current Visit: Yes Status: Chronic Assessment and plan: Currently rate controlled. Continue telemetry monitoring, beta shaka and long -term anticoagulation with Coumadin. INR noted to be therapeutic. Qualifiers: Atrial fibrillation type: chronic Qualified Code(s): I48.2 - Chronic atrial fibrillation (4) Hypothyroid Current Visit: Yes Status: Chronic Assessment and plan: Continue levothyroxine. Qualifiers: Hypothyroidism type: unspecified Qualified Code(s): E03.9 - Hypothyroidism , unspecified (5) Ventral hernia without obstruction or gangrene Current Visit: No Status: Chronic Assessment and plan: Stable. (6) CAD (coronary artery disease) Current Visit: Yes Status: Acute Assessment and plan: Continue aspirin, statin, beta shaka. Telemetry monitoring. Qualifiers: Coronary Disease-Associated Artery/Lesion type: [place] artery [place] vs. transplanted heart: [place] heart Associated angina: angina presence unspecified Qualified Code(s): I25.10 - Atherosclerotic heart disease of [place] coronary artery without angina pectoris (7) COPD (chronic obstructive pulmonary disease) Current Visit: Yes Status: Chronic Assessment and plan: Not in acute exacerbation. Continue when necessary bronchodilators, Spiriva, inhaled corticosteroids. Qualifiers: COPD type: unspecified COPD Qualified Code(s): J44.9 - Chronic obstructive pulmonary disease, unspecified (8) Anxiety and depression Current Visit: Yes Status: Chronic Assessment and plan: Continue home medications. (9) Pancytopenia Current Visit: Yes Status: Chronic Assessment and plan: Likely related to underlying cirrhosis. Continue to monitor closely. Chronic. (10) Chronic respiratory failure Current Visit: Yes Status: Acute Assessment and plan: On 2 L O2 usually. Will try to wean her down to that before discharge. Treat underling cause above for higher O2 needs. Qualifiers: Respiratory failure complication: unspecified whether with hypoxia or hypercapnia Qualified Code(s): J96.10 - Chronic respiratory failure, unspecified whether with hypoxia or hypercapnia (11) DVT prophylaxis Current Visit: Yes Status: Acute Assessment and plan: Patient is on Coumadin. - Subjective Interval history: Patient was seen and examined. She believes that her swelling is even worse in the lower extremity. She has diuresed although she is not positive however her INR was could not be assessed properly as she is having urinary incontinence. She has been afebrile. - Constitutional Vitals: Temp Pulse Resp BP Pulse Ox 98.0 F 72 20 123/74 95 10/07/17 07:53 10/07/17 07:53 10/07/17 07:53 10/07/17 07:53 10/07/17 07:53 General appearance: Present: A&O X 3, answers questions appropriately Exam: GEN: NAD CVS: RRR. S1, S2, No m/r/g RESP: Diminished at the bases with bibasilar crackles ABD: Abdominal hernia is noted. Soft, NT, ND, +BS EXT: 1+ lower extremity edema. She has bilateral lower extremities redness noted at the shins. Nontender. Mild warmth to touch.. 2+ DP. NEURO: Nonfocal Internal Medicine: Result - Labs CBC & Chem 7: 10/06/17 05:08 10/07/17 06:24 Labs: BMP 10/07/17 06:24 Sodium 139 Potassium 3.6 Chloride 97 L Carbon Dioxide 38 H BUN 22 Creatinine 0.98 Glucose 109 H Calcium 8.5 L - ABG Interpretation ABG results: PT/INR, D-dimer PT 27.2 Seconds (9.4-12.1) H 10/07/17 06:24 - VTE Reasons for not Prescribing Prophylaxis: Medical contraindication Documentation of Mechanical Device: Intermittent pneumatic compression device Consult Discharge Plan - Plan Referrals: Ace Daltno DO [Primary Care Provider] - 10/13/17 1:00 pm (Please follow up as scehdule with Miranda Go)
[2017-10-07] MEDS: Budesonide/Formoterol 160/4.5 MDI IH SCH ×2 (10:18→20:01)
[2017-10-07] MEDS: Tiotropium 18 MCG inhalation IH SCH (10:19)
[2017-10-07] MEDS: Fluticasone Propionate Nasal 50 MCG/SPRAY BOTTLE NS SCH (11:45)
[2017-10-07] MEDS ORDERED: *HR* Warfarin 5 MG TABLET PO ONE (18:00)
[2017-10-07] MEDS: ARIPiprazole 2 MG TABLET PO SCH (21:29)
[2017-10-07] MEDS: traZODone 50 MG TABLET PO SCH (21:30)
[2017-10-07] MEDS: Loratadine 10 MG TABLET PO SCH (21:31)
[2017-10-08] MEDS ORDERED: Saline Nasal Spray 44 ML BOTTLE NS PRN (04:25)
[2017-10-08 05:21] LABS: INR 2.3; Prothrombin Time 25.1 Seconds (9.4-12.1)
[2017-10-08 05:24] LABS: Immature Granulocytes % 0.3 % (0-4); Mean Corpuscular Volume 96.7 fL (83.0-100.0); Mean Platelet Volume 10.2 fL (9.4-12.4)
[2017-10-08 05:26] LABS: Basophils % 0.3 %; Eosinophils # 0.1 K/mcL (0.0-0.6); Eosinophils % 2.3 %; Hematocrit 29.6 % (35.3-44.9); Immature Platelets 3.5 % (1.1-6.1); Lymphocytes % 27.4 %; Mean Corpuscular HGB Conc 30.4 g/dL (31.6-35.5); Mean Corpuscular Hemoglobin 29.4 pg (28.0-33.3); Monocytes # 0.4 K/mcL (0.0-1.3); Monocytes % 10.2 %; Neutrophils # 2.3 K/mcL (1.6-8.9); Nucleated Red Blood Cells 0.8 /100 WBC (0); Red Blood Count 3.06 M/mcL (3.82-4.97); Red Cell Distribution Width 14.5 % (11.5-14.5); Segmented Neutrophils % 59.5 %
[2017-10-08 05:28] LABS: Platelet Count 89 K/mcL (140-400)
[2017-10-08 05:35] LABS: BUN/Creatinine Ratio 24 (6-26); Blood Urea Nitrogen 20 mg/dL (8-23); Calcium 8.5 mg/dL (8.6-10.3); Carbon Dioxide 35 mEq/L (23-29); Chloride 99 mEq/L (98-107); Glucose 98 mg/dL (70-105); Osmolality,Calculated 289 (280-300); Sodium 138 mEq/L (136-145); eGFR For African Americans > 60 (> 60); eGFR For Non-African Americans > 60 (> 60)
[2017-10-08] MEDS: Aspirin 81 MG TAB.CHEW PO SCH (08:27)
[2017-10-08] MEDS: Cholecalciferol (D-3) 1,000 UNIT TABLET PO SCH (08:27)
[2017-10-08] MEDS: Cholestyramine 4 GM POWD.PACK PO SCH (08:29)
[2017-10-08] MEDS: Fluticasone Propionate Nasal 50 MCG/SPRAY BOTTLE NS SCH (08:32)
[2017-10-08] MEDS: Furosemide 40 MG/4 ML VIAL IVP SCH ×2 (08:36→17:44)
[2017-10-08] MEDS: Nystatin Cream 15 GM TUBE TP SCH ×3 (08:37→20:34)
[2017-10-08] MEDS: cefTRIAXone 1,000 MG in Water for inj. (sterile) 20 ML 10 ML IVP SCH (08:37)
[2017-10-08] MEDS: Budesonide/Formoterol 160/4.5 MDI IH SCH ×2 (11:13→22:47)
[2017-10-08] MEDS: Tiotropium 18 MCG inhalation IH SCH (11:14)
--- NOTE | 2017-10-08 14:35 | Internal Med Progress Note ---
Date of Encounter: 10/08/17 Time of Encounter: 11:32 - Assessment and plan (1) CHF (congestive heart failure) Current Visit: Yes Status: Acute Assessment and plan: Likely an exacerbation of diastolic heart failure. She had an elevated BNP on admission. Continue with IV Lasix. She is on 40 mg IV twice a day. Continue with fluid restrictions. Continue beta shaka and telemetry monitoring. Echocardiogram from May 2017 shows preserved ejection fraction, moderate biatrial dilation, indeterminate diastolic dysfunction, mild right ventricular dilation, mild to moderate aortic stenosis and tricuspid regurgitation, severe pulmonary hypertension. Qualifiers: Congestive heart failure type: diastolic Congestive heart failure chronicity: acute on chronic Qualified Code(s): I50.33 - Acute on chronic diastolic (congestive) heart failure (2) Cellulitis Current Visit: Yes Status: Acute Assessment and plan: Continue ceftriaxone. Qualifiers: Site of cellulitis: extremity Site of cellulitis of extremity: lower extremity Laterality: unspecified laterality Qualified Code(s): L03.119 - Cellulitis of unspecified part of limb (3) Afib Current Visit: Yes Status: Chronic Assessment and plan: Currently rate controlled. Continue telemetry monitoring, beta shaka and long -term anticoagulation with Coumadin. INR noted to be therapeutic. Qualifiers: Atrial fibrillation type: chronic Qualified Code(s): I48.2 - Chronic atrial fibrillation (4) Hypothyroid Current Visit: Yes Status: Chronic Assessment and plan: Continue levothyroxine. Qualifiers: Hypothyroidism type: unspecified Qualified Code(s): E03.9 - Hypothyroidism , unspecified (5) Ventral hernia without obstruction or gangrene Current Visit: No Status: Chronic Assessment and plan: Stable. (6) CAD (coronary artery disease) Current Visit: Yes Status: Acute Assessment and plan: Continue aspirin, statin, beta shaka. Telemetry monitoring. Qualifiers: Coronary Disease-Associated Artery/Lesion type: [place] artery [place] vs. transplanted heart: [place] heart Associated angina: angina presence unspecified Qualified Code(s): I25.10 - Atherosclerotic heart disease of [place] coronary artery without angina pectoris (7) COPD (chronic obstructive pulmonary disease) Current Visit: Yes Status: Chronic Assessment and plan: Not in acute exacerbation. Continue when necessary bronchodilators, Spiriva, inhaled corticosteroids. Qualifiers: COPD type: unspecified COPD Qualified Code(s): J44.9 - Chronic obstructive pulmonary disease, unspecified (8) Anxiety and depression Current Visit: Yes Status: Chronic Assessment and plan: Continue home medications. (9) Pancytopenia Current Visit: Yes Status: Chronic Assessment and plan: Likely related to underlying cirrhosis. Continue to monitor closely. Chronic. (10) Chronic respiratory failure Current Visit: Yes Status: Acute Assessment and plan: On 2 L O2 usually. Will try to wean her down to that before discharge. Treat underling cause above for higher O2 needs. Qualifiers: Respiratory failure complication: unspecified whether with hypoxia or hypercapnia Qualified Code(s): J96.10 - Chronic respiratory failure, unspecified whether with hypoxia or hypercapnia (11) DVT prophylaxis Current Visit: Yes Status: Acute Assessment and plan: Patient is on Coumadin. (12) Goals of care, counseling/discussion Current Visit: Yes Status: Acute Assessment and plan: Likely discharge tomorrow - Subjective Interval history: Patient was seen and examined. She believes that her swelling in the lower extremities a little better. She tells me she does have chronic lower extremity swelling and this is more than usual.. She has diuresed although she is net positive however her I&Os could not be assessed properly as she is having urinary incontinence. She has been afebrile. - Constitutional Vitals: Temp Pulse Resp BP Pulse Ox 97.6 F 61 23 101/53 96 10/08/17 11:49 10/08/17 11:49 10/08/17 11:49 10/08/17 11:49 10/08/17 11:49 General appearance: Present: A&O X 3, answers questions appropriately Exam: GEN: NAD CVS: RRR. S1, S2, No m/r/g RESP: Diminished at the bases with bibasilar crackles ABD: Abdominal hernia is noted. Soft, NT, ND, +BS EXT: 1+ lower extremity edema. She has bilateral lower extremities redness noted at the shins. Nontender. Mild warmth to touch.. 2+ DP. NEURO: Nonfocal Internal Medicine: Result - Labs CBC & Chem 7: 10/08/17 04:35 10/08/17 04:35 Labs: Short CBC 10/08/17 Range/Units 04:35 WBC 3.8 L (4.3-11.1) K/mcL Hgb 9.0 L (11.5-15.4) g/dL Hct 29.6 L (35.3-44.9) % Plt Count 89 L (140-400) K/mcL Neutrophils # 2.3 (1.6-8.9) K/mcL BMP 10/08/17 04:35 Sodium 138 Potassium 4.0 Chloride 99 Carbon Dioxide 35 H BUN 20 Creatinine 0.82 Glucose 98 Calcium 8.5 L - ABG Interpretation ABG results: PT/INR, D-dimer PT 25.1 Seconds (9.4-12.1) H 10/08/17 04:35 - VTE Reasons for not Prescribing Prophylaxis: Medical contraindication Documentation of Mechanical Device: Intermittent pneumatic compression device Consult Discharge Plan - Plan Referrals: Ace Dalton DO [Primary Care Provider] - 10/13/17 1:00 pm (Please follow up as scehdule with Miranda Go)
[2017-10-08] MEDS ORDERED: *HR* Warfarin 3 MG TABLET PO ONE (18:00)
[2017-10-08] MEDS: Loratadine 10 MG TABLET PO SCH (20:31)
[2017-10-08] MEDS: traZODone 50 MG TABLET PO SCH (20:31)
[2017-10-08] MEDS: ARIPiprazole 2 MG TABLET PO SCH (20:31)
[2017-10-09 05:08] LABS: Hemoglobin 8.9 g/dL (11.5-15.4); Nucleated Red Blood Cells 0.6 /100 WBC (0)
[2017-10-09 05:10] LABS: Basophils % 0.6 %; Eosinophils # 0.1 K/mcL (0.0-0.6); Eosinophils % 3.6 %; Immature Platelets 2.6 % (1.1-6.1); Lymphocytes % 30.1 %; Mean Corpuscular HGB Conc 30.7 g/dL (31.6-35.5); Mean Corpuscular Hemoglobin 29.8 pg (28.0-33.3); Mean Platelet Volume 9.7 fL (9.4-12.4); Monocytes # 0.3 K/mcL (0.0-1.3); Monocytes % 9.8 %; Neutrophils # 1.9 K/mcL (1.6-8.9); Red Blood Count 2.99 M/mcL (3.82-4.97); Red Cell Distribution Width 14.2 % (11.5-14.5); Segmented Neutrophils % 55.9 %
[2017-10-09 05:11] LABS: INR 2.1; Prothrombin Time 23.3 Seconds (9.4-12.1)
[2017-10-09 05:24] LABS: BUN/Creatinine Ratio 24 (6-26); Blood Urea Nitrogen 23 mg/dL (8-23); Calcium 8.5 mg/dL (8.6-10.3); Carbon Dioxide 36 mEq/L (23-29); Chloride 100 mEq/L (98-107); Glucose 100 mg/dL (70-105); Osmolality,Calculated 292 (280-300); Potassium 4.1 mEq/L (3.5-5.1); Sodium 139 mEq/L (136-145); eGFR For African Americans > 60 (> 60); eGFR For Non-African Americans 57 (> 60)
[2017-10-09 05:38] LABS: Platelet Count 93 K/mcL (140-400)
[2017-10-09 07:25] VITALS: BP 114/68
[2017-10-09] MEDS: Tiotropium 18 MCG inhalation IH SCH (07:47)
[2017-10-09] MEDS: Budesonide/Formoterol 160/4.5 MDI IH SCH (07:48)
[2017-10-09] MEDS: Furosemide 40 MG/4 ML VIAL IVP SCH (08:07)
[2017-10-09] MEDS: Cholecalciferol (D-3) 1,000 UNIT TABLET PO SCH (08:07)
[2017-10-09] MEDS: cefTRIAXone 1,000 MG in Water for inj. (sterile) 20 ML 10 ML IVP SCH (08:07)
[2017-10-09] MEDS: Aspirin 81 MG TAB.CHEW PO SCH (08:07)
[2017-10-09] MEDS: Nystatin Cream 15 GM TUBE TP SCH (08:15)
[2017-10-09] MEDS: Cholestyramine 4 GM POWD.PACK PO SCH (08:15)
[2017-10-09] MEDS: Fluticasone Propionate Nasal 50 MCG/SPRAY BOTTLE NS SCH (08:17)
--- NOTE | 2017-10-09 09:31 | Discharge Summary ---
Date of Encounter: 10/09/17 Time of Encounter: 09:27 - Discharge Diagnosis (1) CHF (congestive heart failure) Priority: Primary Status: Acute Qualifiers: Congestive heart failure type: diastolic Congestive heart failure chronicity: acute on chronic Qualified Code(s): I50.33 - Acute on chronic diastolic (congestive) heart failure (2) Cellulitis Priority: Primary Status: Acute Qualifiers: Site of cellulitis: extremity Site of cellulitis of extremity: lower extremity Laterality: unspecified laterality Qualified Code(s): L03.119 - Cellulitis of unspecified part of limb (3) Afib Priority: Secondary Status: Chronic Qualifiers: Atrial fibrillation type: chronic Qualified Code(s): I48.2 - Chronic atrial fibrillation (4) Hypothyroid Priority: Secondary Status: Chronic Qualifiers: Hypothyroidism type: unspecified Qualified Code(s): E03.9 - Hypothyroidism , unspecified (5) Ventral hernia without obstruction or gangrene Priority: Secondary Status: Chronic (6) CAD (coronary artery disease) Priority: Secondary Status: Acute Qualifiers: Coronary Disease-Associated Artery/Lesion type: [place] artery [place] vs. transplanted heart: [place] heart Associated angina: angina presence unspecified Qualified Code(s): I25.10 - Atherosclerotic heart disease of [place] coronary artery without angina pectoris (7) COPD (chronic obstructive pulmonary disease) Priority: Secondary Status: Chronic Qualifiers: COPD type: unspecified COPD Qualified Code(s): J44.9 - Chronic obstructive pulmonary disease, unspecified (8) Anxiety and depression Priority: Secondary Status: Chronic (9) Pancytopenia Priority: Secondary Status: Chronic (10) Chronic respiratory failure Priority: Secondary Status: Acute Qualifiers: Respiratory failure complication: unspecified whether with hypoxia or hypercapnia Qualified Code(s): J96.10 - Chronic respiratory failure, unspecified whether with hypoxia or hypercapnia - Discharge Medications Prescriptions: Cephalexin [Keflex] 500 mg PO BID #8 capsule Furosemide [Lasix] 40 mg PO BID #60 tablet Home Medications: ARIPiprazole [Abilify] 5 mg PO HS 10/21/15 [History] Albuterol Sulfate [Albuterol Inhaler] 2 puff IH Q4HR PRN 10/21/15 [History] Ferrous Sulfate [Iron] 650 mg PO HS 10/21/15 [History] Loratadine [Claritin] 10 mg PO HS 10/21/15 [History] Simvastatin [Zocor] 20 mg PO QPM 10/21/15 [History] Aspirin 81 mg PO DAILY #90 tab.chew 10/23/15 [Rx] traZODone [TraZODone] 50 mg PO HS 12/06/15 [History] Budesonide/Formoterol 160/4.5 [Symbicort 160/4.5] 2 puff IH BIDR 01/13/17 [ History] Escitalopram [Lexapro] 20 mg PO DAILY 01/13/17 [History] Oxygen 3 l NS CONT 01/13/17 [History] Cholecalciferol (D-3) [Vitamin D] 1,000 unit PO BID 04/29/17 [History] Albuterol Neb [Proventil Neb] 2.5 mg IH TID 06/04/17 [History] Ferrous Sulfate [Iron] 325 mg PO QAM 06/04/17 [History] Levothyroxine [Synthroid] 112 mcg PO 0630 06/04/17 [History] Tiotropium [Spiriva] 18 mcg IH DAILY 06/04/17 [History] Atenolol [Tenormin] 50 mg PO DAILY 10/05/17 [History] Cholestyramine/Aspartame [Cholestyramine Light Packet] 4 gm PO DAILY 10/05/17 [ History] Mometasone Furoate [Nasonex] 1 spray NS DAILY 10/05/17 [History] Montelukast [Singulair] 10 mg PO HS 10/05/17 [History] Sennosides/Docusate Sodium [Senna Plus] 1 each PO BID PRN 10/05/17 [History] Warfarin Sodium [Coumadin] 6 mg PO DAILY 10/05/17 [History] Cephalexin [Keflex] 500 mg PO BID #8 capsule 10/09/17 [Rx] Furosemide [Lasix] 40 mg PO BID #60 tablet 10/09/17 [Rx] Allergies/Adverse Reactions: 3 Allergy/AdvReac Type Severity Reaction Status Date / Time morphine Allergy Anaphylaxis Verified 04/29/17 14:08 ranolazine [From Ranexa] Allergy Diarrhea Verified 04/29/17 14:08 etomidate [From Amidate] AdvReac Anaphylaxis Verified 04/29/17 14:08 iodine AdvReac Rash Verified 04/29/17 14:08 povidone-iodine AdvReac Rash Verified 04/29/17 14:08 [From Betadine] soap [From Betadine] AdvReac Rash Verified 04/29/17 14:08 Date of admission: 10/07/17 11:56 Primary care physician: Ace Dalton DO - Patient Status Disposition: Home, Self-Care Overall status at discharge: patient is progressing back to baseline - Discharge Instructions Instructions: Cephalexin (By mouth), Furosemide (By mouth) Follow Up With: Ace Dalton DO [Primary Care Provider] - 10/13/17 1:00 pm (Please follow up as scehdule with Miranda Go) - Diet and Activity Activity: resume usual activities as tolerated, wear oxygen at all times Diet: low salt diet (fluid restriction to 1.5 L) Hospital course: Ms. Muñoz is a 82 year old female admitted via ED for 2 week history of increasing shortness of air, exertional fatigue/lightheadedness, and increasing pedal edema (biaterally). She has a known history Known history of CHF/CAD. Workup in the ED showed pulmonary vascular congestion and small right pleural effusion. She had lower extremity edema. She was admitted to the hospitalist service and was treated for acute exacerbation of diastolic heart failure. She was also noted to have lower extreme cellulitis and was started on IV antibiotics. She was discharged on Keflex. She had appropriate diuresis and was feeling well on 10/09/2017. At baseline she does have lower extremity swelling and she uses [facility] hoses for that. She told me on 10/09 that this was at about her baseline for the swelling. She was stable for discharge to finish treatment with oral antibiotics and was continued on her previous regimen of oral Lasix. - Time Spent with Patient Total time spent providing and/or coordinating discharge services: Greater than 30 minutes - Constitutional Vitals: Temp Pulse Resp BP Pulse Ox 98.0 F 66 15 114/68 98 10/09/17 07:22 10/09/17 07:22 10/09/17 07:22 10/09/17 07:22 10/09/17 08:26 General appearance: Present: A&O X 3, answers questions appropriately Exam: GEN: NAD CVS: RRR. S1, S2, No m/r/g RESP: Diminished at the bases with bibasilar crackles ABD: Abdominal hernia is noted. Soft, NT, ND, +BS EXT: 1+ lower extremity edema. She has bilateral lower extremities redness noted at the shins. Nontender. Mild warmth to touch.. 2+ DP. NEURO: Nonfocal - VTE Reasons for not Prescribing Prophylaxis: Medical contraindication Documentation of Mechanical Device: Intermittent pneumatic compression device
--- NOTE | 2017-10-09 11:56 | Physician Discharge Referral ---
Home Health/Hosp Referral Info Transfer to: Home Health - Diagnosis (1) CHF (congestive heart failure) Priority: Primary Status: Acute (2) Cellulitis Priority: Primary Status: Acute (3) Afib Priority: Secondary Status: Chronic (4) Hypothyroid Priority: Secondary Status: Chronic (5) Ventral hernia without obstruction or gangrene Priority: Secondary Status: Chronic (6) CAD (coronary artery disease) Priority: Secondary Status: Acute (7) COPD (chronic obstructive pulmonary disease) Priority: Secondary Status: Chronic (8) Anxiety and depression Priority: Secondary Status: Chronic (9) Pancytopenia Priority: Secondary Status: Chronic (10) Chronic respiratory failure Priority: Secondary Status: Acute - Respiratory Orders Smoking Cessation: Smoking cessation has been advised. For more information, call the [place] Tobacco Quit Line at 8-182-BPOTNOW. - Services Needed Following services are medically necessary services: Nursing, Physical Therapy - Transfer Medications Prescriptions: Cephalexin [Keflex] 500 mg PO BID #8 capsule Furosemide [Lasix] 40 mg PO BID #60 tablet Home Medications: ARIPiprazole [Abilify] 5 mg PO HS 10/21/15 [History] Albuterol Sulfate [Albuterol Inhaler] 2 puff IH Q4HR PRN 10/21/15 [History] Ferrous Sulfate [Iron] 650 mg PO HS 10/21/15 [History] Loratadine [Claritin] 10 mg PO HS 10/21/15 [History] Simvastatin [Zocor] 20 mg PO QPM 10/21/15 [History] Aspirin 81 mg PO DAILY #90 tab.chew 10/23/15 [Rx] traZODone [TraZODone] 50 mg PO HS 12/06/15 [History] Budesonide/Formoterol 160/4.5 [Symbicort 160/4.5] 2 puff IH BIDR 01/13/17 [ History] Escitalopram [Lexapro] 20 mg PO DAILY 01/13/17 [History] Oxygen 3 l NS CONT 01/13/17 [History] Cholecalciferol (D-3) [Vitamin D] 1,000 unit PO BID 04/29/17 [History] Albuterol Neb [Proventil Neb] 2.5 mg IH TID 06/04/17 [History] Ferrous Sulfate [Iron] 325 mg PO QAM 09/14/17 [History] Levothyroxine [Synthroid] 112 mcg PO 0630 06/04/17 [History] Tiotropium [Spiriva] 18 mcg IH DAILY 06/04/17 [History] Atenolol [Tenormin] 50 mg PO DAILY 10/05/17 [History] Cholestyramine/Aspartame [Cholestyramine Light Packet] 4 gm PO DAILY 10/05/17 [ History] Mometasone Furoate [Nasonex] 1 spray NS DAILY 10/05/17 [History] Montelukast [Singulair] 10 mg PO HS 10/05/17 [History] Sennosides/Docusate Sodium [Senna Plus] 1 each PO BID PRN 10/05/17 [History] Warfarin Sodium [Coumadin] 6 mg PO DAILY 10/05/17 [History] Cephalexin [Keflex] 500 mg PO BID #8 capsule 10/09/17 [Rx] Furosemide [Lasix] 40 mg PO BID #60 tablet 10/09/17 [Rx] Allergies/Adverse Reactions: 3 Allergy/AdvReac Type Severity Reaction Status Date / Time morphine Allergy Anaphylaxis Verified 04/29/17 14:08 ranolazine [From Ranexa] Allergy Diarrhea Verified 04/29/17 14:08 etomidate [From Amidate] AdvReac Anaphylaxis Verified 04/29/17 14:08 iodine AdvReac Rash Verified 04/29/17 14:08 povidone-iodine AdvReac Rash Verified 04/29/17 14:08 [From Betadine] soap [From Betadine] AdvReac Rash Verified 04/29/17 14:08 Certification: Further, I certify that my clinical findings support that this patient is homebound (i.e. absences from home require considerable and taxing effort and are for medical reasons or uatsdin services or infrequently or short duration when for other reasons) because: Homebound Reason: Patient requires assistance of a person or device to safely leave home Attestation: My signature below is to certify that this patient is under my care and that I, or nurse practitioner, or a physician's human resources executive assistant working with me, has a face-to -face encounter with this patient.
[2017-10-09] MEDS ORDERED: *HR* Warfarin 3 MG TABLET PO ONE (18:00)
== END 2017-10-09 14:40 | disposition home or self-care (01) | DRG 292 ==
LOC: EMEROO 16:57 → 2ANU 16:57
PROVIDERS: ADMIT Internal Medicine; ATTEND Internal Medicine